=== PATIENT | female | born 1950 | race Caucasian/White ===

== ENCOUNTER 2022-02-17 08:57 | Outpatient (REF) | payer MEDICARE, SELFPAY ==
--- NOTE | ~2022-02-17 | MM_ITS ---
EXAMINATION: BONE DENSITOMETRY CLINICAL INDICATION: Asymptomatic menopausal state. COMPARISON: None (current study represents initial baseline exam). TECHNIQUE: Using a [employer] [facility] DXA System (software version: 13.1) manufactured by [employer], dual-energy x-ray absorptiometry was performed of the lumbar spine and left hip. The images are of good technical quality. Summary results are attached. FINDINGS: AP SPINE L1-L4 (excluding L3): The data of L1-L4 has been changed to exclude the L3 vertebral body, because degenerative changes at this level may cause overestimation of lumbar spine density. BMD 0.974 g/cm2, Z-score -1.1, T-score -1.6, osteopenia. LEFT FEMUR, NECK: BMD 0.769 g/cm2, Z-score -1.0, T-score -1.9, osteopenia. LEFT FEMUR, TOTAL: BMD 0.953 g/cm2, Z-score 0.2, T-score -0.4, normal. IDENTIFIED RISK FACTORS: Height loss, low calcium intake, tobacco use (current smoker). Early menopause, secondary osteoporosis. HISTORY OF FRACTURE: None listed. MEDICATIONS: Vitamin D. MM/XR DEXA axial skeleton IMPRESSION: 1. DIAGNOSIS: Osteopenia based on the lowest T-score value of -1.9 in the femoral neck applying World Health Organization criteria. 2. 10-YEAR FRACTURE RISK PREDICTION, FRAX: Major osteoporotic fracture (clinical spine, forearm, hip or shoulder) 10.4%. Hip fracture 2.8%. 3. Treatment Recommendations: NOF guidelines recommend consideration for treatment in postmenopausal women and men age 50 and older presenting with the following: -A hip or vertebral (clinical or morphometric) fracture. -T-score less than or equal to -2.5 at the femoral neck or spine after appropriate evaluation to exclude secondary causes. -Low bone mass at the hip or spine and a 10-year fracture probability by FRAX of greater than or equal to 3% for hip fracture or greater than or equal to 20% for major osteoporotic fracture based on the [place] adapted WHO algorithm. 4. Other Recommendations: All treatment decisions require clinical judgment and consideration of individual patient factors, including patient preferences, comorbidities, previous drug use, risk factors not captured in the FRAX model (e.g. frailty, falls, vitamin D deficiency, increased bone turnover, interval significant decline in bone density) and possible under or overestimation of fracture risk by FRAX. Additional medical evaluation for secondary cause of low bone mineral density may be appropriate. FUTURE SCAN RECOMMENDATION: People with diagnosed cases of osteoporosis or at high risk for fracture should have regular bone mineral density tests. For patients eligible for Medicare, routine testing is allowed once every 2 years. The testing frequency can be increased to one year for patients who have rapidly progressing disease, those who are receiving or discontinuing medical therapy to restore bone mass, or have additional risk factors.
== END 2022-02-17 08:58 | disposition home or self-care (01) ==
LOC: HO.MAMMO 08:57
PROVIDERS: PCP Internal Medicine; Visit Provider Internal Medicine
DX: Z13.820 Encounter for screening for osteoporosis (principal); Z78.0 Asymptomatic menopausal state; M85.80 Other specified disorders of bone density and structure, unspecified site
CPT/HCPCS: 77080

== ENCOUNTER 2022-02-23 09:30 | Outpatient (REF) | payer MEDICARE, SELFPAY ==
--- NOTE | ~2022-02-23 | MM_ITS ---
EXAMINATION: MM SCREENING DIGITAL BREAST TOMOSYNTHESIS, BILATERAL CLINICAL INFORMATION: Screening. Asymptomatic. The lifetime risk of breast cancer based on the Tyrer-Cuzick Model is 3%. COMPARISON: Mammography: 04/24/2018; outside exam 06/13/2015 ([facility]). TECHNIQUE: Digital breast tomosynthesis is performed in both the craniocaudal and mediolateral oblique views along with computer-aided detection (CAD). Synthesized 2D images are generated from the tomosynthesis. Additional right CC view is provided. FINDINGS: The breasts are heterogeneously dense, which may obscure small masses (ACR BI-RADS breast composition Category c). There are no significant masses, abnormal calcifications, or other abnormalities. Parenchymal pattern is similar to prior studies. No significant changes. The axilla are unremarkable. MM/MM tomosynthesis screening BI IMPRESSION: No mammographic evidence of malignancy. ASSESSMENT: BI-RADS 1: Negative RECOMMENDATION: Routine annual mammography screening. This patient's information was entered into a reminder system with a target due date for their next mammogram.
== END 2022-02-23 09:31 | disposition home or self-care (01) ==
LOC: HO.MAMMO 09:30
PROVIDERS: PCP Student in an Organized Health Care Education/Training Program; Visit Provider Internal Medicine
DX: Z12.31 Encounter for screening mammogram for malignant neoplasm of breast (principal)
CPT/HCPCS: 77063; 77067

== ENCOUNTER 2022-08-19 07:43 | Outpatient (REF) | payer MEDICARE, SELFPAY ==
[2022-08-19 08:07] LABS: MANUAL DIFF FLAG NO
[2022-08-19 08:40] LABS: Basophils Absolute Auto 0.1 X10*3/uL (0.0-0.2); Basophils Percent Auto 0.8 % (0-2); Eosinophils Absolute Auto 0.1 X10*3/uL (0.0-0.4); Eosinophils Percent Auto 1.9 % (0-4); Hemoglobin 15.6 g/dl (12.0-16.0); Imm Gran Abs Auto 0.03 X10*3/uL (0.00-0.03); Imm Gran Pct Auto 0.5 % (0.0-0.4); Lymphocytes Absolute Auto 1.8 X10*3/uL (1.2-4.9); Lymphocytes Percent Auto 28.3 % (20-40); Mean Corpuscular HGB Conc 35.5 g/dl (31.0-35.0); Mean Corpuscular Hemoglobin 33.3 pg (27.0-33.0); Mean Corpuscular Volume 93.8 fL (80.0-98.0); Mean Platelet Volume 9.5 fL (9.4-12.3); Monocytes Absolute Auto 0.5 X10*3/uL (0.1-1.2); Monocytes Percent Auto 7.2 % (2-11); Neutrophils Absolute Auto 3.8 x10*3/uL (2.0-8.3); Neutrophils Percent Auto 61.3 % (45-73); Platelet Count 332 X10*3/uL (160-400); Red Blood Count 4.69 X10*6/uL (4.20-5.50); Red Cell Distribution Width 12.9 % (11.0-16.0); White Blood Count 6.2 X10*3/uL (4.8-10.8)
[2022-08-19 09:07] LABS: Rheumatoid Factor 14.2 IU/mL (<15.0)
[2022-08-19 09:32] LABS: Alanine Aminotransferase 12 U/L (0-31); Albumin Level 4.2 g/dL (3.5-5.0); Alkaline Phosphatase 102 U/L (39-117); Anion Gap 14 (12-20); Aspartate Amino Transferase 17 U/L (5-31); Bilirubin Total 0.6 mg/dL (0.0-1.0); Blood Urea Nitrogen 15 mg/dL (9-16); Calcium 9.2 mg/dL (8.4-10.2); Carbon Dioxide 26 mmol/L (22-29); Chloride 106 mmol/L (96-108); Cholesterol 188 mg/dL; Estimated Glomerular Filt Rate > 60; Glucose Fasting 94 mg/dL (60-99); HDL Cholesterol 50 mg/dL; LDL Cholesterol Calculated 114 mg/dl; Potassium 4.7 mmol/L (3.3-5.1); Sodium 141 mmol/L (135-145); Triglycerides 121 mg/dL; Vitamin D 25-OH Total 31.8 ng/mL (>30)
[2022-08-20 07:11] LABS: Syphilis Screen Nonreactive (Nonreactive)
[2022-08-21 14:46] LABS: Streptolysin O Antibody 150 IU/mL (<200)
[2022-08-22 15:31] LABS: TS Negative Control Passed; TS Panel A 0; TS Panel B 0; TS Positive Control Passed; TSpotTB Negative (Negative)
[2022-08-23 09:47] LABS: Anti Nuclear Antibody Screen NEGATIVE (NEGATIVE)
[2022-08-24 19:37] LABS: Treponema pallidum Ab FTA ABS Nonreactive (Nonreactive)
[2022-08-25 15:46] LABS: HLA B27 Negative (Negative)
[2022-08-27 05:16] LABS: Angiotensin Converting Enzyme 28 U/L (9-67)
[2022-08-27 22:17] LABS: Lysozyme, Serum 10.4 mcg/mL (5.0-11.0)
== END 2022-08-19 07:44 | disposition home or self-care (01) ==
LOC: HO.LAB 07:43
PROVIDERS: Absent Provider Ophthalmology; PCP Internal Medicine; Visit Provider Internal Medicine
DX: D64.9 Anemia, unspecified (principal); E66.01 Morbid (severe) obesity due to excess calories; E55.9 Vitamin D deficiency, unspecified; H20.022 Recurrent acute iridocyclitis, left eye
CPT/HCPCS: 36415; 80053; 80061; 82164; 82306; 84443; 85025; 85549; 86038; 86039; 86060; 86431; 86481; 86780; 86812

== ENCOUNTER 2023-02-25 10:31 | Outpatient (REF) | payer MEDICARE, SELFPAY ==
--- NOTE | ~2023-02-25 | MM_ITS ---
EXAMINATION: MM SCREENING DIGITAL BREAST TOMOSYNTHESIS, BILATERAL CLINICAL INFORMATION: Screening. Asymptomatic. The lifetime risk of breast cancer based on the Tyrer-Cuzick Model is 3%. COMPARISON: Mammography: 02/23/2022, 04/24/2018; outside exam 06/13/2015 ([facility]) TECHNIQUE: Digital breast tomosynthesis is performed in both the craniocaudal and mediolateral oblique views along with computer-aided detection (CAD). Synthesized 2D images are generated from the tomosynthesis. FINDINGS: The breasts are heterogeneously dense, which may obscure small masses (ACR BI-RADS breast composition Category c). There are no significant masses, abnormal calcifications, or other abnormalities. Parenchymal pattern is similar to prior studies. There is no developing density or architectural abnormality. The axilla and skin contours are unremarkable. No significant changes. MM/MM tomosynthesis screening BI IMPRESSION: No mammographic evidence of malignancy. ASSESSMENT: BI-RADS 1: Negative RECOMMENDATION: Routine annual mammography screening. This patient's information was entered into a reminder system with a target due date for their next mammogram.
== END 2023-02-25 10:32 | disposition home or self-care (01) ==
LOC: HO.MAMMO 10:31
PROVIDERS: PCP Internal Medicine; Visit Provider Internal Medicine
DX: Z12.31 Encounter for screening mammogram for malignant neoplasm of breast (principal)
CPT/HCPCS: 77063; 77067

== ENCOUNTER 2023-06-07 09:38 | Outpatient (AMB) | payer MEDICARE, SELFPAY ==
[2023-06-07 09:41] VITALS: BP 126/80; PULSE 106; O2SAT 98; BMI 42.3
--- NOTE | 2023-06-07 09:41 | MHC.PC.OV ---
Vital Signs 06/07/23 09:41 Height 5 ft 1 in Weight 224 lb BMI 42.3 BP 126/80 Blood Pressure Location Lt brachial Position Sitting Pulse 106 H Pulse Source Pulse Oximeter Temp Source Skin Pulse Oximetry (%) 98 Oxygen Delivery Method Room Air Intake Visit Reasons: 4 month f/u Intake Note: Patient is here to follow up on 4 months Allergies No Known Drug Allergies Allergy (Unknown, Verified 06/07/23 09:51) U Medication List - Last Reconciled 06/07/23 by RAFAEL Day acetaminophen (Tylenol Extra Strength) 500 mg PO Q6H PRN aspirin (Adult Low Dose Aspirin) 81 mg PO DAILY calcium carbonate 600 mg PO BID 90 days cholecalciferol (vitamin D3) 50 mcg PO DAILY clonazepam 1 mg PO BEDTIME PRN 30 days docusate sodium (Colace) 100 mg PO DAILY fluoxetine 20 mg PO DAILY 90 days gabapentin 800 mg PO TID 30 days ibuprofen 200 mg PO Q6H PRN ketorolac 0.5% 1 drp ophthalmic (eye) TID melatonin 10 mg PO BEDTIME PRN nirmatrelvir-ritonavir 300 mg (150 mg x 2)-100 mg (Paxlovid) 3 ea PO PER PKG DIR 5 days omeprazole 20 mg PO DAILY prednisolone acetate 1% 1 drp ophthalmic (eye) DAILY sennosides (Natural Senna Laxative) 17.2 mg PO DAILY Tobacco use date assessed: 06/07/23 Fall risk assessment: No Falls in past year Last assessed Fall Risk: 06/07/23 HPI 4 month f/u HPI Details Patient is a 72-year-old female who presents today for preop clearance. Dr. Garvey Surgery/Date: 06/10/23 left eye cataract, 06/22/23 right eye cataract Surgeon: Dr. Edwards Location: [place], [place] Anaesthesia: Local/MAC. Patient reports history of general anesthesia in the past that she tolerated well. Patient denies history of perioperative hypothermia or blood clotting disorders. Patient is on aspirin 81 mg daily. Medical history significant for morbid obesity, chronic GERD, anxiety, constipation, depression, lumbar degenerative disc disease, insomnia, osteopenia. Patient denies shortness of breath or chest pain. FORMERLY [facility], [facility] Medical History Chronic GERD Constipation by delayed colonic transit Encounter for annual wellness exam in Medicare patient CAMERON (generalized anxiety disorder) Hypovitaminosis D Insomnia Lumbar degenerative disc disease Mild recurrent major depression Morbid obesity Postmenopausal Surgical History Abnormal colonoscopy History of blepharoplasty History of section History of cholecystectomy History of cyst of breast History of knee replacement procedure of right knee History of laryngoscopy History of left knee replacement Family History Father CAD (coronary artery disease) Mother No problems noted. Brother Healthy adult Family/Other FH: mental illness Social History Housing: House Alcohol intake: current Alcohol intake frequency: holidays/special occasions only Alcohol type: hard liquor Patient Tobacco Use Status: Former Tobacco user Quit Date: 03/11/2023 Tobacco use type: Cigarette Cigarettes Per Day: 10 e-Cigarette/Vaping Use: Currently Using Second Hand Smoke Exposure: No service: No Current occupational status: disabled Cognitive needs: No Hearing needs: No Vision needs: No Questionnaire Thrive Questionnaire Date Thrive assessed: 02/01/23 AUDIT C Alcohol Use Questionnaire (AUDIT-C) 1. How often do you have a drink containing alcohol?: Monthly or less 2. How many drinks containing alcohol do you have on a typical day when you are drinking?: 1 or 2 3. How often do you have six or more drinks on one occasion?: Never Total Score: 1 Score Reviewed/Action Taken: No CAMERON-7 AMB Questionnaire CAMERON-7 Date CAMERON - 7 assessed: 02/01/23 Source: Developed by Drs. Avelino Izquierdo, Venita Mayo, Jaspreet Spear and colleagues, with an educational stew from [employer]. Review of Systems Const Denies body aches, Denies chills, Denies fever(s) and Denies headache(s) Eyes Reports as per HPI and Denies change in vision ENT Denies dizziness, Denies otalgia, Denies headache(s), Denies nasal discharge, Denies sinus pain and Denies sore throat Card Denies chest pain, Denies edema, Denies lightheadedness and Denies dyspnea Resp Denies cough, Denies dyspnea and Denies wheezing GI Denies abdominal pain Denies dysuria Musc Denies myalgias Skin/Breast Denies rash Neuro Denies dizziness and Denies headache(s) Aller/Immun Denies wheezing Physical exam (Primary Care) Vital Signs: Last Vital Signs Pulse 106 H 06/07/23 09:41 BP 126/80 06/07/23 09:41 Pulse Ox 98 06/07/23 09:41 Oxygen Delivery Method Room Air 06/07/23 09:41 BMI result Body Mass Index 42.3 Tobacco/Smoking Status: Tobacco use Status Tobacco use date assessed 06/07/23 06/07/23 09:42 Patient Tobacco Use Status Former Tobacco user 06/07/23 09:51 Tobacco use type Cigarette 06/07/23 09:42 e-Cigarette/Vaping Use Currently Using 06/07/23 09:51 Thrive Assessment: Date of Thrive Assessment Date Thrive assessed 02/01/23 06/07/23 09:42 Const General: cooperative and no acute distress Orientation/consciousness: patient oriented x3 HENMT Head: Yes normocephalic and Yes atraumatic Face and sinus: Yes sinuses nontender Mouth: oropharynx normal and moist mucous membranes Throat: Yes posterior oropharynx normal Eyes General: appearance normal, both eyes and all related structures Pupils: Equal, round and reactive pupils present EOM: EOMs intact bilaterally Neck Neck: Yes normal visual inspection, Yes full ROM and Yes no lymphadenopathy Thyroid: Thyroid normal Resp Effort & Inspection: normal respiratory effort and able to speak in complete sentences Auscultation: clear to auscultation bilaterally, no crackles, no rales, no rhonchi and no wheezes Cardio Rate: regular rate Rhythm: regular rhythm Heart sounds: S1 normal heart sound present, S2 normal heart sound present and no murmurs GI Palpation (GI): Soft to palpation, not firm, nontender, no guarding, not rigid and no hepatosplenomegaly Auscultation: normal bowel sounds Skin General skin exam: no rashes or lesions noted Neuro General: patient oriented x3 Cranial nerves: Yes Equal, round and reactive pupils present Gait exam (Neuro): Normal gait present Extrem General: Yes full ROM and No edema Results Reviewed Results Reviewed: Laboratory Tests 06/07/23 06/07/23 06/07/23 10:46 10:46 10:46 WBC 7.2 RBC 4.11 L Hgb 12.7 Hct 38.6 MCV 93.9 MCH 30.9 MCHC 32.9 RDW 12.7 Plt Count 276 MPV 9.3 L Absolute Nucleated RBC 0.000 Nucleated RBC % (auto) 0.0 PT 10.6 L INR 0.9 Sodium 142 Potassium 4.3 Chloride 107 Carbon Dioxide 28 Anion Gap 11 L BUN 15 Creatinine 0.69 Estim Creat Clear Calc Not Reportable Estimated GFR > 60 Random Glucose 93 Calcium 9.9 D TSH 1.72 Assessment and Plan Assessment & Plan (1) Preoperative clearance: Code(s): Z01.818 - Encounter for other preprocedural examination Plan: METs > 4; RCRI Class 1 cardiovascular risk 0.4% for a low risk surgery (recent blood work 06/2023) Regarding preop clearance, the patient is at acceptable risk for proposed surgery. Reviewed with the patient that no surgery is completely free of risk and that this examination is to assist the surgeon in reviewing informed consent. Postop care including DVT prophylaxis per surgeon. Patient is cleared for surgery. Ordering Physician: Gaye Tello Date of Service: 06/07/23 Procedure(s): ECG 12 lead EKG Accession Number(s): [id number] cc: Gaye Tello~ Test Reason : preop Blood Pressure : / mmHG Vent. Rate : 085 BPM ? ? Atrial Rate : 085 BPM ?? P-R Int : 168 ms? QRS Dur : 070 ms ? ? QT Int : 370 ms ? ? ? P-R-T Axes : 050 022 049 degrees ?? QTc Int : 440 ms ? Normal sinus rhythm Normal ECG When compared with ECG of 19-MAY-2013 11:49, No significant change was found ? Referred By: Gaye Tello ? Electronically Signed By:AVELINO KRISHNAMURTYH (2) Morbid obesity: Code(s): E66.01 - Morbid (severe) obesity due to excess calories Plan: BMI 42.3 (3) Cataract: Code(s): H26.9 - Unspecified cataract Plan: Surgery/Date: 06/10/23 left eye cataract, 06/22/23 right eye cataract Surgeon: Dr. Edwards Location: [place], [place] Anaesthesia:? Local/MAC. Orders: Orders Complete Blood Count no Diff 06/07/23 Z01.818 - Encounter for other preprocedural examination Basic Metabolic Panel 06/07/23 Z.818 - Encounter for other preprocedural examination TSH reflex Free T4 06/07/23 Z818 - Encounter for other preprocedural examination Prothrombin Time INR 06/07/23 Z.818 - Encounter for other preprocedural examination ECG 12 lead EKG 06/07/23 Z.81 - Encounter for other preprocedural examination Medications: Discontinued nirmatrelvir-ritonavir 300 mg (150 mg x 2)-100 mg (Paxlovid) Discontinued Reason: Patient no longer taking 3 ea PO PER PKG DIR 5 days 30 ea 0RF Coding Level of Care Code Est Pt Level 3 (45160) Diagnoses Preoperative clearance Z01.818 Morbid obesity E66.01 Cataract H26.9
== END 2023-06-07 10:07 | disposition home or self-care (01) ==
PROVIDERS: PCP Internal Medicine; Visit Provider Nurse Practitioner Family
DX: H26.9 Unspecified cataract (principal); Z01.818 Encounter for other preprocedural examination; E66.01 Morbid (severe) obesity due to excess calories; Z68.41 Body mass index [BMI] 40.0-44.9, adult
CPT/HCPCS: 99213

== ENCOUNTER 2023-06-07 10:24 | Outpatient (REF) | payer MEDICARE, SELFPAY ==
--- NOTE | 2023-06-07 10:31 | ECG_ITS ---
Test Reason : preop Blood Pressure : / mmHG Vent. Rate : 085 BPM Atrial Rate : 085 BPM P-R Int : 168 ms QRS Dur : 070 ms QT Int : 370 ms P-R-T Axes : 050 022 049 degrees QTc Int : 440 ms Normal sinus rhythm Normal ECG When compared with ECG of 19-MAY-2013 11:49, No significant change was found Referred By: Gaye Tello Electronically Signed By:AVELINO KRISHNAMURTHY
[2023-06-07 10:57] LABS: Hematocrit 38.6 % (37.0-47.0); Hemoglobin 12.7 g/dl (12.0-16.0); Mean Corpuscular HGB Conc 32.9 g/dl (31.0-35.0); Mean Corpuscular Hemoglobin 30.9 pg (27.0-33.0); Mean Corpuscular Volume 93.9 fL (80.0-98.0); Mean Platelet Volume 9.3 fL (9.4-12.3); Platelet Count 276 X10*3/uL (160-400); Red Blood Count 4.11 X10*6/uL (4.20-5.50); Red Cell Distribution Width 12.7 % (11.0-16.0); White Blood Count 7.2 X10*3/uL (4.8-10.8)
[2023-06-07 11:03] LABS: INTERNATIONAL NORM RATIO 0.9 (0.9-1.1); Prothrombin Time 10.6 SEC (11.1-13.3)
[2023-06-07 15:15] LABS: Anion Gap 11 (12-20); Blood Urea Nitrogen 15 mg/dL (9-16); Calcium 9.9 mg/dL (8.4-10.2); Carbon Dioxide 28 mmol/L (22-29); Chloride 107 mmol/L (96-108); Estimated Glomerular Filt Rate > 60; Glucose Random 93 mg/dL (60-115); Potassium 4.3 mmol/L (3.3-5.1); Sodium 142 mmol/L (135-145)
[2023-06-07 15:18] LABS: TSH reflex Free T4 1.72 uIU/mL (0.32-4.0)
== END 2023-06-07 10:25 | disposition home or self-care (01) ==
LOC: HO.LAB 10:24
PROVIDERS: PCP Internal Medicine; Visit Provider Nurse Practitioner Family
DX: Z01.818 Encounter for other preprocedural examination (principal); K21.9 Gastro-esophageal reflux disease without esophagitis; I25.10 Atherosclerotic heart disease of native coronary artery without angina pectoris; F32.A Depression, unspecified
CPT/HCPCS: 36415; 80048; 84443; 85027; 85610; 93005

== ENCOUNTER 2023-10-05 09:40 | Outpatient (AMB) | payer MEDICARE, SELFPAY ==
--- NOTE | 2023-10-05 09:46 | MHC.PC.OV ---
Vital Signs 10/05/23 09:47 Height 5 ft 1 in Weight 224 lb BMI 42.3 BP 136/82 Blood Pressure Location Lt brachial Position Sitting Intake Visit Reasons: F/U with Dr. Garvey on meds Intake Note: Patient here for a follow up medication Academic Advising Director Required: No Accompanied by: Self / Same As Patient Allergies No Known Drug Allergies Allergy (Unknown, Verified 10/05/23 10:00) U Medication List - Last Reconciled 10/05/23 by Mariela Jones MD acetaminophen (Tylenol Extra Strength) 500 mg PO Q6H PRN aspirin (Adult Low Dose Aspirin) 81 mg PO DAILY calcium carbonate 600 mg PO BID 90 days cholecalciferol (vitamin D3) 50 mcg PO DAILY clonazepam 1 mg PO BEDTIME PRN 30 days docusate sodium (Colace) 100 mg PO DAILY fluoxetine 20 mg PO DAILY 90 days gabapentin 800 mg PO TID 30 days ibuprofen 200 mg PO Q6H PRN melatonin 10 mg PO BEDTIME PRN omeprazole 20 mg PO DAILY sennosides (Natural Senna Laxative) 17.2 mg PO DAILY Tobacco use date assessed: 06/07/23 Fall risk assessment: No Falls in past year Last assessed Fall Risk: 10/05/23 Dental Screening Dental Screen Date: 10/05/23 Did you have a dental visit in the last 12 months?: Yes Did you have a dental problem in the last 6 months where you did not have access to dental care?: No Was dental information given to patient?: Patient has dentist HPI HPI Comments History of Present Illness Details This is a 73-year-old female with mild recurrent major depression, anxiety, constipation and chronic GERD that comes today for follow-up on her conditions. Depression stable with fluoxetine. Anxiety stable with benzodiazepines and she is aware can cause addiction. Constipation well controlled with medications as needed. GERD also stable with PPIs. No chest pain or shortness of breath. FORMERLY [facility] Medical History Postmenopausal Insomnia Lumbar degenerative disc disease Mild recurrent major depression Constipation by delayed colonic transit Hypovitaminosis D Encounter for annual wellness exam in Medicare patient CAMERON (generalized anxiety disorder) Chronic GERD Morbid obesity Surgical History History of cataract surgery Abnormal colonoscopy History of knee replacement procedure of right knee History of left knee replacement History of laryngoscopy History of cyst of breast History of blepharoplasty History of cholecystectomy History of section Family History Father CAD (coronary artery disease) Mother No problems noted. Brother Healthy adult Family/Other FH: mental illness Social History Housing: House Alcohol intake: current Alcohol intake frequency: holidays/special occasions only Alcohol type: hard liquor Patient Tobacco Use Status: Former Tobacco user Quit Date: 03/11/2023 Tobacco use type: Cigarette Cigarettes Per Day: 10 e-Cigarette/Vaping Use: Currently Using Second Hand Smoke Exposure: No service: No Current occupational status: disabled Cognitive needs: No Hearing needs: No Vision needs: No Questionnaire PHQ-9 Over the last 2 weeks, how often have you been bothered by any of the following problems? 1. Little interest or pleasure in doing things: not at all 2. Feeling down, depressed, or hopeless: several days 3. Trouble falling or staying asleep, or sleeping too much: not at all 4. Feeling tired or having little energy: not at all 5. Poor appetite or overeating: not at all 6. Feeling bad about yourself - or that you are a failure or have let yourself or your family down: not at all 7. Trouble concentrating on things, such as reading the newspaper or watching television: not at all 8. Moving or speaking so slowly that other people could have noticed. Or the opposite - being so fidgety or restless that you have been moving around a lot more than usual: not at all 9. Thoughts that you would be better off or of hurting yourself in some way: not at all Total score: 1 Depression Screening Interpretation: Negative Depression Screening Done: Yes 20537 - PHQ-9 Billing: Yes Source: Developed by Drs. Domingo Izquierdo, Venita Mayo, Jaspreet Spear and colleagues, with an educational stew from [employer]. Thrive Questionnaire Date Thrive assessed: 10/05/23 I am a: Patient What is your living situation today?: I have a steady place to live Within the past 12 months, did the food you bought not last and you didn't have the money to get more?: Never true Within the past 12 months, did you worry whether your food would run out before you got money to buy more?: Never true Do you have trouble paying for medicines?: No Do you have trouble getting transportation to medical appointments?: No Do you have trouble paying your heating and electricity bill?: No Do you have trouble taking care of your child, family member or friend?: No Do you have trouble with day-to-day activities such as bathing, preparing meals, shopping, managing finances, etc.?: No Are you currently unemployed and looking for a job?: No Are you interested in more education?: No Please select the resources that you would like help with: None Currently or been in a relationship where the following occur: no concerns reported AUDIT C Alcohol Use Questionnaire (AUDIT-C) 1. How often do you have a drink containing alcohol?: Monthly or less 2. How many drinks containing alcohol do you have on a typical day when you are drinking?: 1 or 2 3. How often do you have six or more drinks on one occasion?: Never Total Score: 1 Score Reviewed/Action Taken: No CAMERON-7 AMB Questionnaire CAMERON-7 Date CAMERON - 7 assessed: 10/05/23 Feeling nervous, anxious, or on edge: 1 = Several days Not being able to stop or control worryin = Not at all Worrying too much about different things: 0 = Not at all Trouble relaxin = Not at all Being so restless that it is hard to sit still: 0 = Not at all Becoming easily annoyed or irritable: 0 = Not at all Feeling afraid as if something awful might happen: 0 = Not at all Total CAMERON-7 score (0-4 normal; 5-9 mild; 10-14 moderate; 15-21 severe): 1 Source: Developed by Drs. Domingo Izquierdo, Venita Mayo, Jaspreet Spear and colleagues, with an educational stew from [employer]. CAMERON-7 Assessment Billing CAMERON-7 Assessment Tool: CAMERON-7 Assessment 88070 Review of Systems Const All systems reviewed & are unremarkable except as noted in HPI and below Eyes Reports no additional complaints, Denies change in vision and Denies other visual disturbances Card Denies chest pain at rest, Denies chest pain with activity, Denies edema, Denies irregular heart rhythm, Denies claudication, Denies dyspnea, Denies dyspnea on exertion, Denies orthopnea, Denies paroxysmal nocturnal dyspnea and Denies slow heart rate Resp Denies cough, Denies dyspnea and Denies dyspnea on exertion GI Denies abdominal pain, Denies change in bowel habits, Denies excessive flatus, Denies nausea and Denies vomiting Denies urinary incontinence, Denies urinary hesitancy and Denies urinary urgency Musc Denies abnormal gait, Denies atrophy, Denies deformity and Denies limited range of motion Skin/Breast Denies bleeding lesions, Denies changing lesions and Denies rash Neuro Denies abnormal gait, Denies behavioral changes and Denies lack of coordination Psych Denies behavioral changes Physical exam (Primary Care) Vital Signs: Last Vital Signs BP 136/82 10/05/23 09:47 BMI result Body Mass Index 42.3 Tobacco/Smoking Status: Tobacco use Status Tobacco use date assessed 06/07/23 10/05/23 09:47 Patient Tobacco Use Status Former Tobacco user 10/05/23 09:47 Tobacco use type Cigarette 10/05/23 09:47 e-Cigarette/Vaping Use Currently Using 10/05/23 09:47 PHQ-9: PHQ-9 Score PHQ-9: Total score 1 10/05/23 10:05 Depression Screening Interpretation: Negative Thrive Assessment: Date of Thrive Assessment Date Thrive assessed 10/05/23 10/05/23 09:55 Currently or been in a relationship where the following occur: no concerns reported [facility] Head: Yes normal to inspection, Yes normocephalic and Yes atraumatic Ears: external ears normal General nose exam: Normal external nose present and No nasal discharge present Face and sinus: Yes sinuses nontender Mouth: lip normal Eyes General: appearance normal, both eyes and all related structures Eyelids: Yes eyelids normal Conjunctivae: conjunctivae normal Neck Neck: Yes normal visual inspection and Yes supple Resp Effort & Inspection: normal respiratory effort Auscultation: clear to auscultation bilaterally Cardio Jugular venous distension: no JVD Rate: regular rate Rhythm: regular rhythm Heart sounds: S1 normal heart sound present and S2 normal heart sound present Extrem General: Yes full ROM Assessment and Plan Assessment & Plan (1) Mild recurrent major depression: Code(s): F33.0 - Major depressive disorder, recurrent, mild Plan: Continue SSRIs. (2) Constipation by delayed colonic transit: Code(s): K59.01 - Slow transit constipation Plan: Continue senna as needed. (3) CAMERON (generalized anxiety disorder): Code(s): F41.1 - Generalized anxiety disorder Plan: Continue benzodiazepines as needed. (4) Chronic GERD: Code(s): K21.9 - Gastro-esophageal reflux disease without esophagitis Plan: Continue PPIs as needed. (5) Morbid obesity: Code(s): E66.01 - Morbid (severe) obesity due to excess calories Plan: Start diet and exercise. BMI goal is less than 30. Medications: Refilled gabapentin 800 mg PO TID 30 days 90 tabs 3RF Coding Level of Care Code Est Pt Level 4 (96955) Diagnoses Mild recurrent major depression F33.0 Constipation by delayed colonic transit K59.01 CAMERON (generalized anxiety disorder) F41.1 Chronic GERD K21.9 Morbid obesity E66.01 Additional Codes CAMERON-7 Assessment Billing - CAMERON-7 Assessment Tool: CAMERON-7 Assessment 32245 ([id number]) Time Spent (min) 23
[2023-10-05 09:47] VITALS: BP 136/82; BMI 42.3
== END 2023-10-05 10:08 | disposition home or self-care (01) ==
PROVIDERS: PCP Internal Medicine; Visit Provider Internal Medicine
DX: F33.0 Major depressive disorder, recurrent, mild (principal); E66.01 Morbid (severe) obesity due to excess calories; Z68.41 Body mass index [BMI] 40.0-44.9, adult; K59.01 Slow transit constipation; F41.1 Generalized anxiety disorder; K21.9 Gastro-esophageal reflux disease without esophagitis
CPT/HCPCS: 99214

== ENCOUNTER 2023-11-16 17:08 | Emergency (ER) | payer MEDICARE, SELFPAY ==
--- NOTE | ~2023-11-16 | CT_ITS ---
EXAMINATION: CT head/brain wo IV con CLINICAL INFORMATION: Reason for Exam No headache, RO mass/bleed COMPARISON: None. TECHNIQUE: Contiguous axial imaging was performed from the skull base to vertex without intravenous contrast. Sagittal and coronal reformatted images were obtained. This CT examination was performed using dose optimization techniques as appropriate, variously including the following: * Automated exposure control * Adjustment of mA and/or kV according to patient size (this includes techniques or standardized protocols for targeted exams where dose is matched to indication/reason for exam; i.e. extremities or head) Use of iterative reconstruction technique DLP: 661 mGy-cm FINDINGS: No acute osseous or soft tissue abnormality. The mastoid air cells and visualized portions of the paranasal sinuses are well aerated. There is no evidence of acute intracranial hemorrhage or territorial infarction. No abnormal mass effect or midline shift is seen. [place] to white matter differentiation is well preserved. No extra-axial fluid collections are identified. No hydrocephalus. Proportional prominence of the ventricles and sulcal spaces is consistent with mild volume loss. Patchy periventricular and deep white matter hypoattenuation is consistent with mild small vessel ischemic changes. CT/CT head/brain wo IV con IMPRESSION: No acute intracranial abnormality including hemorrhage, mass effect, hydrocephalus, or acute territorial edematous infarction.
[2023-11-16 17:17] VITALS: BP 194/86; PULSE 109; RESP 18; TEMP 36.9; O2SAT 97; BMI 42.5
--- NOTE | 2023-11-16 17:38 | ED_ITS ---
HPI - Headache General Chief Complaint: Headache Stated Complaint: pain in the back of head Time Seen by Provider: 11/16/23 23:00 History of Present Illness HPI Narrative: The patient is a 73-year-old woman who presents to the emergency room for evaluation of symptoms that started 5 days ago on TuesdayNovember 11. She says that at some point in the late morning she started having pains in the left side of her head. She says that she gets sharp stabbing or jabbing pains on the left side of her head ever since Tuesday. She describes having a generalized left- sided headache associated with frequent jabbing exacerbations. She says that the jabbing sensations mostly occur around the left ear. She went to an urgent care 3 days ago on November 13. She was told that her symptoms might indicate imminent shingles but since though shingles lesions or apparent no therapy was begun. The patient was told that if her symptoms continue she would need to go to the emergency room and have a CT scan. She says that this morning she was feeling somewhat better for awhile but did around 13:00 this afternoon the jabbing pains began again and she called her primary care doctor and ultimately came to the emergency room. She has not had any fevers, sweats, chills. No difficulty speaking. No weakness in her extremities. No facial asymmetry. No change in mental status. No neck stiffness. At the moment she is indicating that the pain is essentially just behind and under the left ear. Related Data Home Medications Medication Instructions Recorded Confirmed acetaminophen 500 mg tablet 500 mg PO Q6H PRN 01/28/22 10/05/23 (Tylenol Extra Strength) aspirin 81 mg tablet,delayed 81 mg PO DAILY 01/28/22 10/05/23 release (Adult Low Dose Aspirin) cholecalciferol (vitamin D3) 25 50 mcg PO DAILY 01/28/22 10/05/23 mcg (1,000 unit) capsule docusate sodium 100 mg capsule 100 mg PO DAILY 01/28/22 10/05/23 (Colace) ibuprofen 200 mg tablet 200 mg PO Q6H PRN 01/28/22 10/05/23 melatonin 10 mg disintegrating 10 mg PO BEDTIME PRN 01/28/22 10/05/23 tablet sennosides 8.6 mg tablet (Natural 17.2 mg PO DAILY 01/28/22 10/05/23 Senna Laxative) Previous Rx's Medication Instructions Recorded calcium carbonate 600 mg calcium 600 mg PO BID 90 days #180 tabs 06/28/22 (1,500 mg) tablet omeprazole 20 mg capsule,delayed 20 mg PO DAILY #90 caps 01/28/23 release gabapentin 800 mg tablet 800 mg PO TID 30 days #90 tabs 10/05/23 fluoxetine 20 mg capsule 20 mg PO DAILY 90 days #90 caps 11/14/23 clonazepam 1 mg tablet 1 mg PO BEDTIME PRN anxiety 30 11/16/23 days #30 tabs Allergies Allergy/AdvReac Type Severity Reaction Status Date / Time No Known Drug Allergies Allergy Unknown U Verified 11/16/23 17:17 Review of Systems 2 Review of Systems: Yes all other systems are reviewed and are negative [facility] Past Medical History Medical History Postmenopausal Insomnia Lumbar degenerative disc disease Mild recurrent major depression Constipation by delayed colonic transit Hypovitaminosis D Encounter for annual wellness exam in Medicare patient CAMERON (generalized anxiety disorder) Chronic GERD Morbid obesity Surgical History History of cataract surgery Abnormal colonoscopy History of knee replacement procedure of right knee History of left knee replacement History of laryngoscopy History of cyst of breast History of blepharoplasty History of cholecystectomy History of section Family History Family History Father CAD (coronary artery disease) Mother No problems noted. Brother Healthy adult Family/Other FH: mental illness Social History Social History Housing: House Alcohol intake: current Alcohol intake frequency: holidays/special occasions only Alcohol type: hard liquor Patient Tobacco Use Status: Former Tobacco user Quit Date: 03/11/2023 Tobacco use type: Cigarette Cigarettes Per Day: 10 Smoked in Last 30 Days: No e-Cigarette/Vaping Use: Currently Using Second Hand Smoke Exposure: No Use of substances other than those prescribed or required for medical reasons: No Advance Directives: Yes Advance Directives on File: Yes Advance Directives Date on File: 01/29/22 service: No Current occupational status: disabled Cognitive needs: No Hearing needs: No Vision needs: No Physical Exam 2 Vital Signs: Vital Signs: Last Vital Signs Temp 98.3 F 11/17/23 01:24 Pulse 83 11/17/23 01:24 Resp 18 11/17/23 01:24 BP 143/70 H 11/17/23 01:24 Pulse Ox 97 11/17/23 01:24 O2 Del Method Room Air 11/17/23 01:24 BMI result Body Mass Index 42.5 Const: Other: The patient is awake, alert, pleasant, cooperative. Mental status is normal. She does not seem toxic or in distress. HEENT: Other: Face is symmetrical. Mucous membranes are moist. Tympanic membranes are normal bilaterally. The patient has some vague area of tenderness in the region of the left mastoid and below the left ear. No erythema. No swelling. No marked tenderness. Eyes: Other: Pupils are round, equal, and reactive to light. Extraocular movements are normal. Conjunctivae are clear. No Louis syndrome. Funduscopic exam is unremarkable. Neck: Other: No appreciable cervical adenopathy. Neck is entirely supple. Resp: Effort & Inspection: normal respiratory effort Auscultation: clear to auscultation bilaterally Cardio: Rate: regular rate Rhythm: regular rhythm Heart sounds: S1 normal heart sound present and S2 normal heart sound present Neuro: Other: The patient is awake, alert, oriented, appropriate. Mental status is normal. Cranial nerves 2-12 are intact. She has normal strength and sensation in her extremities. Finger-nose is normal. She is neurologically intact. No Louis syndrome Extrem: Other: No peripheral edema Course Course Course Narrative: Patient complains of headache gradual onset over past several days on left side of head, no weakness confusion no thunderclap, no fever no stiff neck no trauma Head CT ordered This is rapid medical exam done in triage pending full evaluation and dispo by ER provider Medications Administered Discontinued Medications Generic Name Dose Route Start Last Admin Trade Name Freq PRN Reason Stop Dose Admin Ketorolac Tromethamine 30 mg 11/16/23 23:33 11/16/23 23:51 Ketorolac Tromethamine 30 Mg/Ml Vial IM 11/16/23 23:34 30 mg ONCE ONE Administration Lidocaine HCl 2 ml 11/16/23 23:25 11/16/23 23:28 Lidocaine Hcl 1 % 20 Ml Vial INFILTRATI 11/16/23 23:26 2 ml ONCE ONE Administration Medical Decision Making Medical Decision Making [facility] Narrative: The patient presents with several days of a new head pain syndrome. She describes frequent shooting type pains on the left side of her head. The pains are exclusively on the left side. There is no associated fever, sweats, chills. No associated neck stiffness. Her description of the symptoms does not suggest a thunderclap headache. My overall impression based on her description of the symptoms is that she is having some kind of neuropathic type pain, possibly something like trigeminal neuralgia. The patient had had a head CT ordered at triage. This is negative. I explained to the patient that I felt that her description of her headache syndrome did not seem suggestive of an acute vascular problem or other acutely dangerous problem. I think this is much more likely a neuropathic problem. CBC, basic metabolic panel, LFTs, ESR, and C-reactive protein are all unremarkable. I tried a trigger point injection, injecting 2 mL of 1% lidocaine with a 30 gauge needle in the region of pain behind the left ear. This was done with aseptic technique. The patient was also given a dose of ketorolac. Clinically the patient seemed to look a little bit better although she did not report a great deal of relief. Her blood pressure improved. I explained to the patient and to her daughter that I felt an acute vascular problem or other acutely dangerous problem was very unlikely based on her description of her symptoms. I explained that management of the symptoms may be difficult as neuropathic pain symptoms can be difficult to manage. She is already on gabapentin 800 mg b.i.d.. She will be discharged to follow up with her regular doctor. Lab Data 11/16/23 23:33 11/16/23 23:33 Labs: Lab Results 11/16/23 Range/Units 23:33 WBC 9.1 (4.8-10.8) X10*3/uL RBC 4.45 (4.20-5.50) X10*6/uL Hgb 13.4 (12.0-16.0) g/dl Hct 41.3 (37.0-47.0) % MCV 92.8 (80.0-98.0) fL MCH 30.1 (27.0-33.0) pg MCHC 32.4 (31.0-35.0) g/dl RDW 12.1 (11.0-16.0) % Plt Count 277 (160-400) X10*3/uL MPV 9.4 (9.4-12.3) fL Immature Gran % (Auto) 0.2 (0.0-0.4) % Neut % (Auto) 61.9 (45-73) % Lymph % (Auto) 26.7 (20-40) % [place] % (Auto) 9.2 (2-11) % Eos % (Auto) 1.2 (0-4) % Baso % (Auto) 0.8 (0-2) % Lymph # (Auto) 2.4 (1.2-4.9) X10*3/uL [place] # (Auto) 0.8 (0.1-1.2) X10*3/uL Eos # (Auto) 0.1 (0.0-0.4) X10*3/uL Baso # (Auto) 0.1 (0.0-0.2) X10*3/uL Abs Immat Gran (auto) 0.02 (0.00-0.03) X10*3/uL Absolute Neuts (auto) 5.7 (2.0-8.3) x10*3/uL Absolute Nucleated RBC 0.000 (0.0-0.012) X10*3/uL Nucleated RBC % (auto) 0.0 (0.0-0.2) /100WBC ESR 16 (0-20) MM/HR Sodium 143 (135-145) mmol/L Potassium 4.1 (3.3-5.1) mmol/L Chloride 104 (96-108) mmol/L Carbon Dioxide 25 (22-29) mmol/L Anion Gap 18 (12-20) BUN 13 (9-16) mg/dL Creatinine 0.73 (0.5-1.4) mg/dL Estim Creat Clear Calc 77.5 Estimated GFR > 60 Random Glucose 97 (60-115) mg/dL Calcium 10.1 (8.4-10.2) mg/dL Total Bilirubin 0.5 (0.0-1.0) mg/dL Direct Bilirubin 0.2 (0.0-0.5) mg/dL AST 18 (5-31) U/L ALT 12 (0-31) U/L Alkaline Phosphatase 103 (39-117) U/L C-Reactive Protein 0.57 H (< or = 0.50) mg/dL Total Protein 7.7 (6.5-8.0) g/dL Albumin 4.4 (3.5-5.0) g/dL Discharge Plan Discharge Clinical Impression: Head pain cephalgia Patient Disposition: Home, Self-Care Instructions: Trigeminal Neuralgia (ED) Additional Instructions: I think your description of the symptoms you have been having imply some kind of neuropathic kind of pain. I suspect you have something similar to trigeminal neuralgia. In the short run you may use ibuprofen and acetaminophen as needed for pain. You may consider going up on your dose of gabapentin. Please plan on contacting your regular doctor's office in the morning to make a follow-up appointment to discuss these symptoms further. If at any point you are significantly worse please return to the emergency room. Prescriptions: No Action omeprazole 20 mg capsule,delayed release(DR/EC) 20 mg PO DAILY Qty: 90 3RF fluoxetine 20 mg capsule 20 mg PO DAILY 90 Days Qty: 90 3RF clonazepam 1 mg tablet 1 mg PO BEDTIME PRN (Reason: anxiety) 30 Days Qty: 30 0RF gabapentin 800 mg tablet 800 mg PO TID 30 Days Qty: 90 3RF aspirin [Adult Low Dose Aspirin] 81 mg tablet,delayed release (DR/EC) 81 mg PO DAILY docusate sodium [Colace] 100 mg capsule 100 mg PO DAILY acetaminophen [Tylenol Extra Strength] 500 mg tablet 500 mg PO Q6H PRN ibuprofen 200 mg tablet 200 mg PO Q6H PRN cholecalciferol (vitamin D3) 25 mcg (1,000 unit) capsule 50 mcg PO DAILY sennosides [Natural Senna Laxative] 8.6 mg tablet 17.2 mg PO DAILY melatonin 10 mg tablet,disintegrating 10 mg PO BEDTIME PRN calcium carbonate 600 mg calcium (1,500 mg) tablet 600 mg PO BID 90 Days Qty: 180 1RF Interventions: ED Discharge Assessment Last Done: 11/17/23 01:26 Discharge Date/Time: 11/17/23 01:27
[2023-11-16 20:45] VITALS: BP 185/111; PULSE 92; RESP 18; O2SAT 97
--- NOTE | 2023-11-16 20:50 | PC.NURSE ---
reassessed from triage for vs. pa bill notified bp 185/111. talking well. continues w h/a.
[2023-11-16] MEDS: Lidocaine HCl 1 % 20 ML VIAL INFILTRATI (23:28)
[2023-11-16 23:34] VITALS: BP 154/80; PULSE 74; RESP 16; TEMP 36.9; O2SAT 97
[2023-11-16 23:42] LABS: Basophils Absolute Auto 0.1 X10*3/uL (0.0-0.2); Basophils Percent Auto 0.8 % (0-2); Eosinophils Absolute Auto 0.1 X10*3/uL (0.0-0.4); Eosinophils Percent Auto 1.2 % (0-4); Hematocrit 41.3 % (37.0-47.0); Hemoglobin 13.4 g/dl (12.0-16.0); Imm Gran Abs Auto 0.02 X10*3/uL (0.00-0.03); Imm Gran Pct Auto 0.2 % (0.0-0.4); Lymphocytes Absolute Auto 2.4 X10*3/uL (1.2-4.9); Lymphocytes Percent Auto 26.7 % (20-40); MANUAL DIFF FLAG NO; Mean Corpuscular HGB Conc 32.4 g/dl (31.0-35.0); Mean Corpuscular Hemoglobin 30.1 pg (27.0-33.0); Mean Corpuscular Volume 92.8 fL (80.0-98.0); Mean Platelet Volume 9.4 fL (9.4-12.3); Monocytes Absolute Auto 0.8 X10*3/uL (0.1-1.2); Monocytes Percent Auto 9.2 % (2-11); Neutrophils Absolute Auto 5.7 x10*3/uL (2.0-8.3); Neutrophils Percent Auto 61.9 % (45-73); Platelet Count 277 X10*3/uL (160-400); Red Blood Count 4.45 X10*6/uL (4.20-5.50); Red Cell Distribution Width 12.1 % (11.0-16.0); White Blood Count 9.1 X10*3/uL (4.8-10.8)
[2023-11-16] MEDS: Ketorolac Tromethamine 30 MG/ML VIAL IM (23:51)
[2023-11-16 23:58] LABS: Alanine Aminotransferase 12 U/L (0-31); Albumin Level 4.4 g/dL (3.5-5.0); Alkaline Phosphatase 103 U/L (39-117); Anion Gap 18 (12-20); Aspartate Amino Transferase 18 U/L (5-31); Bilirubin Direct 0.2 mg/dL (0.0-0.5); Bilirubin Total 0.5 mg/dL (0.0-1.0); Blood Urea Nitrogen 13 mg/dL (9-16); C Reactive Protein 0.57 mg/dL (< or = 0.50); Calcium 10.1 mg/dL (8.4-10.2); Carbon Dioxide 25 mmol/L (22-29); Chloride 104 mmol/L (96-108); Creatinine Clr Calc Pharmacy 77.5; Estimated Glomerular Filt Rate > 60; Glucose Random 97 mg/dL (60-115); Potassium 4.1 mmol/L (3.3-5.1); Sodium 143 mmol/L (135-145); Total Protein 7.7 g/dL (6.5-8.0)
[2023-11-17 00:20] LABS: Erythrocyte Sedimentation Rate 16 MM/HR (0-20)
[2023-11-17 01:24] VITALS: BP 143/70; PULSE 83; RESP 18; TEMP 36.8; O2SAT 97
== END 2023-11-17 01:27 | disposition home or self-care (01) ==
PROVIDERS: Emergency Provider Emergency Medicine; PCP Internal Medicine
DX: R51.9 Headache, unspecified (principal)
CPT/HCPCS: 36415; 70450; 80048; 80076; 85025; 85652; 86140; 96372; 99284; J1885

== ENCOUNTER 2023-12-06 16:58 | Outpatient (AMB) | payer MEDICARE, SELFPAY ==
[2023-12-06 17:01] VITALS: BP 160/100; BMI 42.3
--- NOTE | 2023-12-06 17:01 | A.OFFPC_ITS ---
Vital Signs 12/06/23 17:01 12/06/23 18:04 Height 5 ft 1 in Weight 224 lb BMI 42.3 BP 160/100 H 160/90 H Blood Pressure Location Lt brachial Lt brachial Position Sitting Sitting Intake Visit Reasons: [facility] [place] ED 11/16 head pain discharged 11/17 Intake Note: Patient here for [facility] ED follow up head pain 11/16 Chain Maker Hand Required: No Accompanied by: Self / Same As Patient Allergies No Known Drug Allergies Allergy (Unknown, Verified 12/06/23 17:21) U Medication List - Last Reconciled 12/06/23 by Mariela Jones MD acetaminophen (Tylenol Extra Strength) 500 mg PO Q6H PRN aspirin (Adult Low Dose Aspirin) 81 mg PO DAILY calcium carbonate 600 mg PO BID 90 days cholecalciferol (vitamin D3) 50 mcg PO DAILY clonazepam 1 mg PO BEDTIME PRN 30 days docusate sodium (Colace) 100 mg PO DAILY fluoxetine 20 mg PO DAILY 90 days gabapentin 800 mg PO TID 30 days ibuprofen 200 mg PO Q6H PRN melatonin 10 mg PO BEDTIME PRN omeprazole 20 mg PO DAILY sennosides (Natural Senna Laxative) 17.2 mg PO DAILY Tobacco use date assessed: 12/06/23 Fall risk assessment: No Falls in past year Last assessed Fall Risk: 12/06/23 Dental Screening Dental Screen Date: 12/06/23 Did you have a dental visit in the last 12 months?: Yes Did you have a dental problem in the last 6 months where you did not have access to dental care?: No Was dental information given to patient?: Patient has dentist HPI HPI Comments History of Present Illness Details This is a 73-year-old female with mild recurrent major depression, morbid obesity, GERD and constipation that comes today as a hospital discharge follow-up with discharge date 11/17/2023 due to a headache that started November 10 and resolve November 20. She said she increase her gabapentin to 3 times a day and she started taking more NSAIDs. Head CT was done and was negative. No neurological deficit. She said that yesterday she turned the head to the right and started having eye rolling movements and loss of balance. Does not recall tinnitus. Romberg test negative today. I gave her meclizine in case it happens again. Depression has improved with SSRIs. She is morbidly obese with a BMI of 42.3 and was advised to diet and exercise as tolerated to reach BMI goal less than 30. Declines weight loss surgery. GERD stable with medications. Constipation also stable with medications. No chest pain or shortness of breath. Walks with no assistive device. Has elevated blood pressure today and had elevated blood pressure at ER. Blood pressure will be recheck in 3 weeks by nurse navigator. [facility] Medical History (Updated 12/06/23 @ 18:06 by Mariela Jones MD) Postmenopausal Insomnia Lumbar degenerative disc disease Mild recurrent major depression Constipation by delayed colonic transit Hypovitaminosis D Encounter for annual wellness exam in Medicare patient CAMERON (generalized anxiety disorder) Chronic GERD Morbid obesity Surgical History History of cataract surgery Abnormal colonoscopy History of knee replacement procedure of right knee History of left knee replacement History of laryngoscopy History of cyst of breast History of blepharoplasty History of cholecystectomy History of section Family History Father CAD (coronary artery disease) Mother No problems noted. Brother Healthy adult Family/Other FH: mental illness Social History Housing: House Alcohol intake: current Alcohol intake frequency: holidays/special occasions only Alcohol type: hard liquor Patient Tobacco Use Status: Former Tobacco user Quit Date: 03/11/2023 Tobacco use type: Cigarette Cigarettes Per Day: 10 e-Cigarette/Vaping Use: Currently Using Second Hand Smoke Exposure: No Advance Directives Date on File: 01/29/22 service: No Current occupational status: disabled Cognitive needs: No Hearing needs: No Vision needs: No Questionnaire PHQ-9 Over the last 2 weeks, how often have you been bothered by any of the following problems? 1. Little interest or pleasure in doing things: several days 2. Feeling down, depressed, or hopeless: several days 3. Trouble falling or staying asleep, or sleeping too much: not at all 4. Feeling tired or having little energy: several days 5. Poor appetite or overeating: several days 6. Feeling bad about yourself - or that you are a failure or have let yourself or your family down: not at all 7. Trouble concentrating on things, such as reading the newspaper or watching television: not at all 8. Moving or speaking so slowly that other people could have noticed. Or the opposite - being so fidgety or restless that you have been moving around a lot more than usual: not at all 9. Thoughts that you would be better off or of hurting yourself in some way: not at all Total score: 4 Depression Screening Interpretation: Positive Depression Screening Follow-up: Existing condition and In treatment Depression Screening Done: Yes 73734 - PHQ-9 Billing: Yes Source: Developed by Drs. Domingo Izquierdo, Venita Mayo, aJspreet Spear and colleagues, with an educational stew from [employer]. Thrive Questionnaire Date Thrive assessed: 10/05/23 CAMERON-7 AMB Questionnaire CAMERON-7 Date CAMERON - 7 assessed: 12/06/23 Feeling nervous, anxious, or on edge: 1 = Several days Not being able to stop or control worryin = Not at all Worrying too much about different things: 0 = Not at all Trouble relaxin = Not at all Being so restless that it is hard to sit still: 0 = Not at all Becoming easily annoyed or irritable: 0 = Not at all Feeling afraid as if something awful might happen: 0 = Not at all Total CAMERON-7 score (0-4 normal; 5-9 mild; 10-14 moderate; 15-21 severe): 1 Source: Developed by Drs. Domingo Izquierdo, Venita Mayo, Jaspreet Spear and colleagues, with an educational stew from [employer]. CAMERON-7 Assessment Billing CAMERON-7 Assessment Tool: CAMERON-7 Assessment 38314 Review of Systems Const All systems reviewed & are unremarkable except as noted in HPI and below Eyes Reports no additional complaints, Denies change in vision and Denies other visual disturbances Card Denies chest pain at rest, Denies chest pain with activity, Denies edema, Denies irregular heart rhythm, Denies claudication, Denies dyspnea, Denies dyspnea on exertion, Denies orthopnea, Denies paroxysmal nocturnal dyspnea and Denies slow heart rate Resp Denies cough, Denies dyspnea and Denies dyspnea on exertion GI Denies abdominal pain, Denies change in bowel habits, Denies excessive flatus, Denies nausea and Denies vomiting Denies urinary incontinence, Denies urinary hesitancy and Denies urinary urgency Musc Denies abnormal gait, Denies atrophy, Denies deformity and Denies limited range of motion Skin/Breast Denies bleeding lesions, Denies changing lesions and Denies rash Neuro Denies abnormal gait, Denies behavioral changes and Denies lack of coordination Psych Denies behavioral changes Physical exam (Primary Care) Vital Signs: Last Vital Signs BP 160/100 H 12/06/23 17:01 BMI result Body Mass Index 42.3 Tobacco/Smoking Status: Tobacco use Status Tobacco use date assessed 12/06/23 12/06/23 17:12 Patient Tobacco Use Status Former Tobacco user 12/06/23 17:12 Tobacco use type Cigarette 12/06/23 17:12 e-Cigarette/Vaping Use Currently Using 12/06/23 17:12 PHQ-9: PHQ-9 Score PHQ-9: Total score 4 12/06/23 17:29 Depression Screening Interpretation: Positive Depression Screening Follow-up: Existing condition and In treatment Thrive Assessment: Date of Thrive Assessment Date Thrive assessed 10/05/23 12/06/23 17:12 Eyes General: appearance normal, both eyes and all related structures Eyelids: Yes eyelids normal Conjunctivae: conjunctivae normal Neck Neck: Yes normal visual inspection and Yes supple Resp Effort & Inspection: normal respiratory effort Auscultation: clear to auscultation bilaterally Cardio Jugular venous distension: no JVD Rate: regular rate Rhythm: regular rhythm Heart sounds: S1 normal heart sound present and S2 normal heart sound present Extrem General: Yes full ROM Assessment and Plan Assessment & Plan (1) Mild recurrent major depression: Code(s): F33.0 - Major depressive disorder, recurrent, mild Plan: Continue SSRIs. (2) Morbid obesity: Code(s): E66.01 - Morbid (severe) obesity due to excess calories Plan: Start diet and exercise. BMI goal is less than 30. (3) Constipation by delayed colonic transit: Code(s): K59.01 - Slow transit constipation Plan: Continue Colace. (4) Chronic GERD: Code(s): K21.9 - Gastro-esophageal reflux disease without esophagitis Plan: Continue PPIs as needed. (5) Elevated blood pressure reading without diagnosis of hypertension: Code(s): R03.0 - Elevated blood-pressure reading, without diagnosis of hypertension Plan: Recheck blood pressure in 3 weeks by nurse navigator. Medications: New meclizine 25 mg PO DAILY 3 days PRN 3 tabs 0RF motion sickness Coding Level of Care Code Est Pt Level 4 (09374) Diagnoses Mild recurrent major depression F33.0 Morbid obesity E66.01 Constipation by delayed colonic transit K59.01 Chronic GERD K21.9 Elevated blood pressure reading without diagnosis of hypertension R03.0 Additional Codes CAMERON-7 Assessment Billing - CAMERON-7 Assessment Tool: CAMERON-7 Assessment 65506 ([id number]) Time Spent (min) 24
[2023-12-06 18:04] VITALS: BP 160/90
== END 2023-12-06 17:42 | disposition home or self-care (01) ==
PROVIDERS: PCP Internal Medicine; Visit Provider Internal Medicine
DX: K21.9 Gastro-esophageal reflux disease without esophagitis (principal); F33.0 Major depressive disorder, recurrent, mild; E66.01 Morbid (severe) obesity due to excess calories; Z68.41 Body mass index [BMI] 40.0-44.9, adult; K59.01 Slow transit constipation; R03.0 Elevated blood-pressure reading, without diagnosis of hypertension
CPT/HCPCS: 99214

== ENCOUNTER 2024-04-09 08:53 | Outpatient (AMB) | payer MEDICARE, SELFPAY ==
[2024-04-09 08:55] VITALS: BP 110/72; PULSE 104; O2SAT 95; BMI 43.5
--- NOTE | 2024-04-09 08:55 | A.OFFPC_ITS ---
Vital Signs 04/09/24 08:55 Height 5 ft 1 in Weight 230 lb 0.5 oz BMI 43.5 BP 110/72 Blood Pressure Location Lt brachial Position Sitting Pulse 104 H Pulse Source Pulse Oximeter Pulse Oximetry (%) 95 Oxygen Delivery Method Room Air Intake Visit Reasons: ANNUAL Intake Note: Patient is here today for a physical. 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 Accompanied by: Self / Same As Patient Allergies No Known Drug Allergies Allergy (Unknown, Verified 04/09/24 09:15) U Medication List - Last Reconciled 04/09/24 by Mariela Jones MD acetaminophen (Tylenol Extra Strength) 500 mg PO Q6H PRN aspirin (Adult Low Dose Aspirin) 81 mg PO DAILY calcium carbonate 600 mg PO BID 90 days cholecalciferol (vitamin D3) 50 mcg PO DAILY clonazepam 1 mg PO BEDTIME PRN 30 days docusate sodium (Colace) 100 mg PO DAILY fluoxetine 20 mg PO DAILY 90 days gabapentin 800 mg PO TID 30 days ibuprofen 200 mg PO Q6H PRN meclizine 25 mg PO DAILY PRN 3 days melatonin 10 mg PO BEDTIME PRN omeprazole 20 mg PO DAILY sennosides (Natural Senna Laxative) 17.2 mg PO DAILY Tobacco use date assessed: 12/06/23 Fall risk assessment: No Falls in past year Last assessed Fall Risk: 04/09/24 Dental Screening Dental Screen Date: 12/06/23 Did you have a dental visit in the last 12 months?: No Did you have a dental problem in the last 6 months where you did not have access to dental care?: No Was dental information given to patient?: Patient has dentist HPI HPI Comments History of Present Illness Details This is a 73-year-old female with mild recurrent major depression and morbid obesity that comes for her physical exam. Depression stable with SSRIs. She is morbidly obese with a BMI of 43.5 and I will start her on Wegovy. Side effects were discussed. Last mammogram was 2022 and was normal. Last DEXA scan was 2021 and will be ordered. Last colonoscopy was 2018 and had to be repeated. We will be referred to Dr. Tripp for this matter. No acute complaints. She has been a smoker for many years and stopped a year ago when changed to vaping. She declines lung cancer screening. [facility] Medical History (Updated 04/09/24 @ 12:02 by Mariela Jones MD) Postmenopausal Insomnia Lumbar degenerative disc disease Mild recurrent major depression Constipation by delayed colonic transit Hypovitaminosis D Encounter for annual wellness exam in Medicare patient CAMERON (generalized anxiety disorder) Chronic GERD Morbid obesity Surgical History History of cataract surgery Abnormal colonoscopy History of knee replacement procedure of right knee History of left knee replacement History of laryngoscopy History of cyst of breast History of blepharoplasty History of cholecystectomy History of section Family History (Updated 04/09/24 @ 09:22 by Mariela Jones MD) Father CAD (coronary artery disease) Mother Essential hypertension Stroke, Onset Age: 78 Brother Healthy adult Family/Other FH: mental illness Social History Housing: House Alcohol intake: current Alcohol intake frequency: holidays/special occasions only Alcohol type: hard liquor Patient Tobacco Use Status: Former Tobacco user Tobacco use type: Cigarette Cigarettes Per Day: 10 e-Cigarette/Vaping Use: Currently Using Second Hand Smoke Exposure: No Advance Directives Date on File: 01/29/22 service: No Current occupational status: disabled Cognitive needs: No Hearing needs: No Vision needs: No Questionnaire PHQ-9 Over the last 2 weeks, how often have you been bothered by any of the following problems? 1. Little interest or pleasure in doing things: several days 2. Feeling down, depressed, or hopeless: several days 3. Trouble falling or staying asleep, or sleeping too much: not at all 4. Feeling tired or having little energy: several days 5. Poor appetite or overeating: several days 6. Feeling bad about yourself - or that you are a failure or have let yourself or your family down: not at all 7. Trouble concentrating on things, such as reading the newspaper or watching television: not at all 8. Moving or speaking so slowly that other people could have noticed. Or the opposite - being so fidgety or restless that you have been moving around a lot more than usual: not at all 9. Thoughts that you would be better off or of hurting yourself in some way: not at all Total score: 4 Depression Screening Interpretation: Positive Depression Screening Follow-up: Existing condition, In treatment and Follow-up Visit Requested Depression Screening Done: Yes 99247 - PHQ-9 Billing: Yes Source: Developed by Drs. Domingo Izquierdo, Venita Mayo, Jaspreet Spear and colleagues, with an educational stew from [employer]. Thrive Questionnaire Date Thrive assessed: 10/05/23 I am a: Patient What is your living situation today?: I have a steady place to live Within the past 12 months, did the food you bought not last and you didn't have the money to get more?: Never true Within the past 12 months, did you worry whether your food would run out before you got money to buy more?: Never true Do you have trouble paying for medicines?: No Do you have trouble getting transportation to medical appointments?: No Do you have trouble paying your heating and electricity bill?: No Do you have trouble taking care of your child, family member or friend?: No Do you have trouble with day-to-day activities such as bathing, preparing meals, shopping, managing finances, etc.?: No Are you currently unemployed and looking for a job?: No Are you interested in more education?: No Please select the resources that you would like help with: None Currently or been in a relationship where the following occur: No concerns reported THRIVE Score: 0 AUDIT C Alcohol Use Questionnaire (AUDIT-C) 1. How often do you have a drink containing alcohol?: Monthly or less 2. How many drinks containing alcohol do you have on a typical day when you are drinking?: 1 or 2 3. How often do you have six or more drinks on one occasion?: Never Total Score: 1 Score Reviewed/Action Taken: No CAMERON-7 AMB Questionnaire CAMERON-7 Date CAMERON - 7 assessed: 12/06/23 Feeling nervous, anxious, or on edge: 1 = Several days Not being able to stop or control worryin = Several days Worrying too much about different things: 0 = Not at all Trouble relaxin = Not at all Being so restless that it is hard to sit still: 0 = Not at all Becoming easily annoyed or irritable: 0 = Not at all Feeling afraid as if something awful might happen: 0 = Not at all Total CAMERON-7 score (0-4 normal; 5-9 mild; 10-14 moderate; 15-21 severe): 2 Source: Developed by Drs. Domingo Izquierdo, Venita Mayo, Jaspreet Spear and colleagues, with an educational stew from [employer]. CAMERON-7 Assessment Billing CAMERON-7 Assessment Tool: CAMERON-7 Assessment 12875 Review of Systems Const All systems reviewed & are unremarkable except as noted in HPI and below Card Denies chest pain at rest, Denies chest pain with activity, Denies edema, Denies irregular heart rhythm, Denies claudication, Denies dyspnea, Denies dyspnea on exertion, Denies orthopnea, Denies paroxysmal nocturnal dyspnea and Denies slow heart rate Resp Denies cough, Denies dyspnea and Denies dyspnea on exertion GI Denies abdominal pain, Denies change in bowel habits, Denies excessive flatus, Denies nausea and Denies vomiting Neuro Denies lack of coordination Aller/Immun Denies urticaria Physical exam (Primary Care) Vital Signs: Last Vital Signs Pulse 104 H 04/09/24 08:55 BP 110/72 04/09/24 08:55 Pulse Ox 95 04/09/24 08:55 Oxygen Delivery Method Room Air 04/09/24 08:55 BMI result Body Mass Index 43.5 BMI Assessment/Plan discussion: High BMI High, discussed plan: lifestyle, weight reduction, dietary and physical activity Tobacco/Smoking Status: Tobacco use Status Tobacco use date assessed 12/06/23 04/09/24 09:05 Patient Tobacco Use Status Former Tobacco user 04/09/24 09:05 Tobacco use type Cigarette 04/09/24 09:05 e-Cigarette/Vaping Use Currently Using 04/09/24 09:05 Are you ready to quit: Yes Tobacco cessation counseling provided: No PHQ-9: PHQ-9 Score PHQ-9: Total score 4 04/09/24 09:23 Depression Screening Interpretation: Positive Depression Screening Follow-up: Existing condition, In treatment and Follow-up Visit Requested Thrive Assessment: Date of Thrive Assessment Date Thrive assessed 10/05/23 04/09/24 09:05 Currently or been in a relationship where the following occur: No concerns r eported Const Orientation/consciousness: patient oriented x3 HENMT Head: Yes normal to inspection, Yes normocephalic and Yes atraumatic Ears: external ears normal Eyes General: appearance normal, both eyes and all related structures Eyelids: Yes eyelids normal Conjunctivae: conjunctivae normal Neck Neck: Yes normal visual inspection and Yes supple Resp Effort & Inspection: normal respiratory effort Auscultation: clear to auscultation bilaterally Cardio Jugular venous distension: no JVD Rate: regular rate Rhythm: regular rhythm Heart sounds: S1 normal heart sound present and S2 normal heart sound present GI Inspection: Yes normal to inspection Palpation (GI): Soft to palpation and nontender Auscultation: normal bowel sounds Skin General skin exam: no rashes or lesions noted Neuro General: patient oriented x3 and no focal motor deficits Extrem General: Yes full ROM Psych Appearance: grossly normal Assessment and Plan Assessment & Plan (1) Physical exam: Code(s): Z00.00 - Encounter for general adult medical examination without abnormal findings Plan: Repeat in a year. (2) Morbid obesity: Code(s): E66.01 - Morbid (severe) obesity due to excess calories Plan: Advised to do diet and exercise. Start Wegovy if insurance approves. BMI goal is less than 30. (3) Mild recurrent major depression: Code(s): F33.0 - Major depressive disorder, recurrent, mild Plan: Continue SSRIs. Orders: Orders XR DEXA axial skeleton Today N95.9 - Unspecified menopausal and perimenopausal disorder MM screening mammo BI Today Z12.31 - Encounter for screening mammogram for malignant neoplasm of breast Vitamin D 25-OH Total Today E55.9 - Vitamin D deficiency, unspecified, M85.80 - Other specified disorders of bone density and structure, unspecified site Lipid Panel Today E66.01 - Morbid (severe) obesity due to excess calories Comprehensive [place]. Panel Fast Today E66.01 - Morbid (severe) obesity due to excess calories Referrals Gastroenterology Referral Z12.11 - Encounter for screening for malignant ramila plasm of colon Medications: New semaglutide (weight loss) (Wegovy) administer weeks 1 through 4 of therapy 0.25 mg (0.5 mL) subcut QWEEK 2 mL 0RF 4 weeks E66.01 - Morbid (severe) obesity due to excess calories Coding Level of Care Code Est Pt Prev Care >65y(23292) Diagnoses Physical exam Z00.00 Morbid obesity E66.01 Mild recurrent major depression F33.0 Additional Codes CAMERON-7 Assessment Billing - CAMERON-7 Assessment Tool: CAMERON-7 Assessment 44276 ([id number]) Time Spent (min) 35
== END 2024-04-09 09:37 | disposition home or self-care (01) ==
PROVIDERS: PCP Internal Medicine; Visit Provider Internal Medicine
DX: Z00.00 Encounter for general adult medical examination without abnormal findings (principal); E66.01 Morbid (severe) obesity due to excess calories; Z68.41 Body mass index [BMI] 40.0-44.9, adult; F33.0 Major depressive disorder, recurrent, mild
CPT/HCPCS: 96127; 99397

== ENCOUNTER 2024-05-11 13:30 | Outpatient (REF) | payer MEDICARE, SELFPAY ==
--- NOTE | ~2024-05-11 | MM_ITS ---
EXAMINATION: MM SCREENING DIGITAL BREAST TOMOSYNTHESIS, BILATERAL CLINICAL INFORMATION: Screening. Asymptomatic. No prior family history, no prior surgeries as per technologist note. COMPARISON: Mammography: 02/25/2023, 02/23/2022, 04/24/2018, 06/13/2015. TECHNIQUE: Digital breast tomosynthesis is performed in both the craniocaudal and mediolateral oblique views along with computer-aided detection (CAD). Synthesized 2D images are generated from the tomosynthesis. FINDINGS: The breasts are heterogeneously dense, which may obscure small masses (ACR BI-RADS breast composition Category c). There are no suspicious masses, suspicious grouped calcifications, or areas of architectural distortion in either breast. The parenchymal pattern is stable from prior exams. There is no skin or axillary abnormality. MM/MM tomosynthesis screening BI IMPRESSION: No mammographic evidence of malignancy. ASSESSMENT: BI-RADS BI-RADS 1 - Negative RECOMMENDATION: Routine annual mammography screening. 1 year F/U This examination should not preclude the clinical evaluation of a suspicious palpable abnormality. This patient's information was entered into a reminder system with a target due date for their next mammogram. Electronically signed by: Ramon Marin MD 05/30/2024 09:47 AM EDT
--- NOTE | ~2024-05-11 | MM_ITS ---
EXAMINATION: BONE DENSITOMETRY CLINICAL INDICATION: Unspecified menopausal and perimenopausal disorder. COMPARISON: Baseline BD dated 02/17/2022. TECHNIQUE: Using a [employer] DXA System (software version: 13.1) manufactured by [employer], dual-energy x-ray absorptiometry was performed of the lumbar spine and left hip. The images are of good technical quality. Summary results are attached. FINDINGS: LEFT FEMUR, NECK: Current: BMD 0.758 g/cm2, Z-score -1.0, T-score -2.0, osteopenia. Baseline: BMD 0.769 g/cm2. LEFT FEMUR, TOTAL: Current: BMD 0.964 g/cm2, Z-score 0.4, T-score -0.3, normal, 1.2% increase from baseline (<5% change is not significant). Baseline: BMD 0.953 g/cm2. AP SPINE L1-L4: Current: BMD 1.053 g/cm2, Z-score -0.5, T-score -1.1, osteopenia, 3.4% increase from baseline (<5% change is not significant). Baseline: BMD 1.018 g/cm2. IDENTIFIED RISK FACTORS: Early menopause, secondary osteoporosis, height loss, current smoker. HISTORY OF FRACTURE: None listed. MEDICATIONS: Calcium supplements or multivitamin, vitamin D. MM/XR DEXA axial skeleton IMPRESSION: 1. DIAGNOSIS: Osteopenia based on the lowest T-score value of -2.0 in the femoral neck applying World Health Organization criteria. 2. 10-YEAR FRACTURE RISK PREDICTION, FRAX: Major osteoporotic fracture (clinical spine, forearm, hip or shoulder) 11.4%. Hip fracture 3.6%. 3. Treatment Recommendations: NOF guidelines recommend consideration for treatment in postmenopausal women and men age 50 and older presenting with the following: -A hip or vertebral (clinical or morphometric) fracture. -T-score less than or equal to -2.5 at the femoral neck or spine after appropriate evaluation to exclude secondary causes. -Low bone mass at the hip or spine and a 10-year fracture probability by FRAX of greater than or equal to 3% for hip fracture or greater than or equal to 20% for major osteoporotic fracture based on the [place] adapted WHO algorithm. 4. Other Recommendations: All treatment decisions require clinical judgment and consideration of individual patient factors, including patient preferences, comorbidities, previous drug use, risk factors not captured in the FRAX model (e.g. frailty, falls, vitamin D deficiency, increased bone turnover, interval significant decline in bone density) and possible under or overestimation of fracture risk by FRAX. Additional medical evaluation for secondary cause of low bone mineral density may be appropriate. FUTURE SCAN RECOMMENDATION: People with diagnosed cases of osteoporosis or at high risk for fracture should have regular bone mineral density tests. For patients eligible for Medicare, routine testing is allowed once every 2 years. The testing frequency can be increased to one year for patients who have rapidly progressing disease, those who are receiving or discontinuing medical therapy to restore bone mass, or have additional risk factors.
== END 2024-05-11 13:31 | disposition home or self-care (01) ==
LOC: HO.MAMMO 13:30
PROVIDERS: PCP Internal Medicine; Visit Provider Internal Medicine
DX: Z12.31 Encounter for screening mammogram for malignant neoplasm of breast (principal); Z13.820 Encounter for screening for osteoporosis; Z78.0 Asymptomatic menopausal state
CPT/HCPCS: 77063; 77067; 77080

== ENCOUNTER → 2024-05-11 13:45 | Outpatient (BNV) | payer MEDICARE, SELFPAY | PROVIDERS: PCP Internal Medicine; Visit Provider Radiology Diagnostic Radiology | DX: Z12.31 Encounter for screening mammogram for malignant neoplasm of breast (principal) | CPT/HCPCS: 77063; 77067 ==

== ENCOUNTER 2024-06-05 09:09 | Outpatient (REF) | payer MEDICARE, SELFPAY ==
[2024-06-05 10:44] LABS: Alanine Aminotransferase 12 U/L (0-31); Albumin Level 4.3 g/dL (3.5-5.0); Alkaline Phosphatase 104 U/L (39-117); Anion Gap 13 (12-20); Aspartate Amino Transferase 17 U/L (5-31); Bilirubin Total 0.6 mg/dL (0.0-1.0); Blood Urea Nitrogen 20 mg/dL (9-16); Carbon Dioxide 28 mmol/L (22-29); Chloride 103 mmol/L (96-108); Cholesterol 187 mg/dL (<200); Estimated Glomerular Filt Rate > 60; Glucose Fasting 104 mg/dL (60-99); HDL Cholesterol 53 mg/dL (>40); LDL Cholesterol Calculated 104 mg/dL (<100); Potassium 4.2 mmol/L (3.3-5.1); Sodium 140 mmol/L (135-145); Total Protein 7.5 g/dL (6.5-8.0); Triglycerides 154 mg/dL (<150); Vitamin D 25-OH Total 45.5 ng/mL (>30)
== END 2024-06-05 09:10 | disposition home or self-care (01) ==
LOC: HO.LAB 09:09
PROVIDERS: PCP Internal Medicine; Visit Provider Internal Medicine
DX: E66.01 Morbid (severe) obesity due to excess calories (principal); E55.9 Vitamin D deficiency, unspecified; M85.80 Other specified disorders of bone density and structure, unspecified site
CPT/HCPCS: 36415; 80053; 80061; 82306

== ENCOUNTER 2024-10-10 12:55 | Outpatient (AMB) | payer MEDICARE, SELFPAY ==
--- NOTE | 2024-10-10 13:03 | A.OFFPC_ITS ---
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 Accompanied by: Self / Same As Patient Allergies No Known Drug Allergies Allergy (Unknown, Verified 10/10/24 13:15) U Medication List - Last Reconciled 10/10/24 by Mariela Jones MD acetaminophen (Tylenol Extra Strength) 500 mg PO Q6H PRN ascorbic acid (vitamin C) ER 1,000 mg PO Q12H aspirin (Adult Low Dose Aspirin) 81 mg PO DAILY calcium carbonate 600 mg PO BID 90 days cholecalciferol (vitamin D3) 50 mcg PO DAILY clonazepam 1 mg PO BEDTIME PRN 30 days docusate sodium (Colace) 100 mg PO DAILY fluoxetine 20 mg PO DAILY 90 days gabapentin 800 mg PO TID 30 days ibuprofen 200 mg PO Q6H PRN meclizine 25 mg PO DAILY PRN 3 days melatonin 10 mg PO BEDTIME PRN omeprazole 20 mg PO DAILY sennosides (Natural Senna Laxative) 17.2 mg PO DAILY Tobacco use date assessed: 10/10/24 Fall risk assessment: No Falls in past year Last assessed Fall Risk: 10/10/24 Dental Screening Dental Screen Date: 10/10/24 Did you have a dental visit in the last 12 months?: Yes Did you have a dental problem in the last 6 months where you did not have access to dental care?: No Was dental information given to patient?: Patient has dentist HPI HPI Comments History of Present Illness Details This is a 74-year-old female with mild recurrent major depression, anxiety, GERD, constipation and morbid obesity that comes today for follow-up on her conditions. Depression has been stable with SSRIs. Anxiety well controlled with benzodiazepines and she is aware can cause addiction, sedation and dementia. GERD stable with PPIs. Constipation well controlled with medications. She has gained 14 lb due to increase in appetite and has a BMI of 46.1. Was advised to do diet and exercise. Wegovy was not approved by insurance and I will send Zepbound instead. She is a smoker and was advised to quit. [facility] Medical History (Updated 10/10/24 @ 13:30 by Mariela Jones MD) Postmenopausal Insomnia Lumbar degenerative disc disease Mild recurrent major depression Constipation by delayed colonic transit Hypovitaminosis D Encounter for annual wellness exam in Medicare patient CAMERON (generalized anxiety disorder) Chronic GERD Morbid obesity Surgical History History of cataract surgery Abnormal colonoscopy History of knee replacement procedure of right knee History of left knee replacement History of laryngoscopy History of cyst of breast History of blepharoplasty History of cholecystectomy History of section Family History Father CAD (coronary artery disease) Mother Essential hypertension Stroke, Onset Age: 78 Brother Healthy adult Family/Other FH: mental illness Social History Housing: House Alcohol intake: current Alcohol intake frequency: holidays/special occasions only Alcohol type: hard liquor Patient Tobacco Use Status: Current everyday Tobacco user Tobacco use type: Cigarette Cigarettes Per Day: 5 e-Cigarette/Vaping Use: Currently Using Second Hand Smoke Exposure: No Advance Directives Date on File: 01/29/22 service: No Current occupational status: disabled Cognitive needs: No Hearing needs: No Vision needs: No Questionnaire PHQ-9 Over the last 2 weeks, how often have you been bothered by any of the following problems? 1. Little interest or pleasure in doing things: several days 2. Feeling down, depressed, or hopeless: several days 3. Trouble falling or staying asleep, or sleeping too much: not at all 4. Feeling tired or having little energy: several days 5. Poor appetite or overeating: several days 6. Feeling bad about yourself - or that you are a failure or have let yourself or your family down: not at all 7. Trouble concentrating on things, such as reading the newspaper or watching television: not at all 8. Moving or speaking so slowly that other people could have noticed. Or the opposite - being so fidgety or restless that you have been moving around a lot more than usual: not at all 9. Thoughts that you would be better off or of hurting yourself in some way: not at all Total score: 4 Depression Screening Interpretation: Positive Depression Screening Follow-up: Existing condition, In treatment and Follow-up Visit Requested Depression Screening Done: Yes 29324 - PHQ-9 Billing: Yes Source: Developed by Drs. Domingo Izquierdo, Venita Mayo, Jaspreet Spear and colleagues, with an educational stew from [employer]. Thrive Questionnaire Date Thrive assessed: 10/10/24 I am a: Patient What is your living situation today?: I have a steady place to live Within the past 12 months, did the food you bought not last and you didn't have the money to get more?: Never true Within the past 12 months, did you worry whether your food would run out before you got money to buy more?: Never true Do you have trouble paying for medicines?: No Do you have trouble getting transportation to medical appointments?: No Do you have trouble paying your heating and electricity bill?: No Do you have trouble taking care of your child, family member or friend?: No Do you have trouble with day-to-day activities such as bathing, preparing meals, shopping, managing finances, etc.?: No Are you currently unemployed and looking for a job?: No Are you interested in more education?: No Please select the resources that you would like help with: None Currently or been in a relationship where the following occur: No concerns reported THRIVE Score: 0 AUDIT C Alcohol Use Questionnaire (AUDIT-C) 1. How often do you have a drink containing alcohol?: Never Total Score: 0 CAMERON-7 AMB Questionnaire CAMERON-7 Date CAMERON - 7 assessed: 10/10/24 Feeling nervous, anxious, or on edge: 1 = Several days Not being able to stop or control worryin = Not at all Worrying too much about different things: 1 = Several days Trouble relaxin = Not at all Being so restless that it is hard to sit still: 0 = Not at all Becoming easily annoyed or irritable: 0 = Not at all Feeling afraid as if something awful might happen: 0 = Not at all Total CAMERON-7 score (0-4 normal; 5-9 mild; 10-14 moderate; 15-21 severe): 2 Source: Developed by Drs. Domingo Izquierdo, Jaspreet Murray and colleagues, with an educational stew from [employer]. CAMERON-7 Assessment Billing CAMERON-7 Assessment Tool: CAMERON-7 Assessment 10358 Review of Systems Const All systems reviewed & are unremarkable except as noted in HPI and below Card Denies chest pain at rest, Denies chest pain with activity, Denies edema, Denies irregular heart rhythm, Denies claudication, Denies dyspnea, Denies dyspnea on exertion, Denies orthopnea, Denies paroxysmal nocturnal dyspnea and Denies slow heart rate Resp Denies cough, Denies dyspnea and Denies dyspnea on exertion Physical exam (Primary Care) Vital Signs: Last Vital Signs BP 132/86 10/10/24 13:04 BMI result Body Mass Index 46.1 BMI Assessment/Plan discussion: High BMI High, discussed plan: lifestyle, weight reduction, dietary and physical activity Tobacco/Smoking Status: Tobacco use Status Tobacco use date assessed 10/10/24 10/10/24 13:13 Patient Tobacco Use Status Current everyday Tobacco 10/10/24 13:13 Tobacco use type Cigarette 10/10/24 13:13 e-Cigarette/Vaping Use Currently Using 10/10/24 13:13 Are you ready to quit: No Tobacco cessation counseling provided: Yes Items discussed: Nicotine replacement and QuitWorks Relapse Prevention: discussed the importance of a supportive environment, discussed extending NRT, discussed negative mood or depression after quitting, weight gain after smoking is common and discussed dietary, exercise and/or lifestyle changes Number of minutes spent counselin CPT code: 32091 - 4-10 Minutes PHQ-9: PHQ-9 Score PHQ-9: Total score 4 10/10/24 13:13 Depression Screening Interpretation: Positive Depression Screening Follow-up: Existing condition, In treatment and Follow-up Visit Requested Thrive Assessment: Date of Thrive Assessment Date Thrive assessed 10/10/24 10/10/24 13:13 Currently or been in a relationship where the following occur: No concerns reported Resp Effort & Inspection: normal respiratory effort Auscultation: clear to auscultation bilaterally Cardio Jugular venous distension: no JVD Rate: regular rate Rhythm: regular rhythm Heart sounds: S1 normal heart sound present and S2 normal heart sound present Extrem General: Yes full ROM Psych Appearance: grossly normal Coding Level of Care Code Est Pt Level 4 (84226) Complex EM visit Add On G2211 Diagnoses Morbid obesity E66.01 Mild recurrent major depression F33.0 Constipation by delayed colonic transit K59.01 CAMERON (generalized anxiety disorder) F41.1 Chronic GERD K21.9 Additional Codes CAMERON-7 Assessment Billing - CAMERON-7 Assessment Tool: CAMERON-7 Assessment 85299 ([id number]) PHQ-9 - 85544 - PHQ-9 Billing: Yes ([id number]) Vital Signs *Quality* - CPT code: 10932 - 4-10 Minutes ([id number]) Time Spent (min) 22 Assessment & Plan Assessment & Plan (1) Morbid obesity: Code(s): E66.01 - Morbid (severe) obesity due to excess calories Category: Medical (2) Mild recurrent major depression: Code(s): F33.0 - Major depressive disorder, recurrent, mild Category: Medical (3) Constipation by delayed colonic transit: Code(s): K59.01 - Slow transit constipation Category: Medical (4) CAMERON (generalized anxiety disorder): Code(s): F41.1 - Generalized anxiety disorder Category: Medical (5) Chronic GERD: Code(s): K21.9 - Gastro-esophageal reflux disease without esophagitis Category: Medical Plan For depression continue fluoxetine. For anxiety continue benzodiazepines. She is morbidly obese with a BMI of 46.1 and I sent Zepbound pending to be approved by insurance. Continue PPIs as needed for GERD. Start high-fiber diet for constipation and continue medications. Orders: Orders Lipid Panel 6 Months E78.5 - Hyperlipidemia, unspecified Vitamin D 25-OH Total 6 Months E55.9 - Vitamin D deficiency, unspecified Comprehensive [place]. Panel Fast 6 Months E66.01 - Morbid (severe) obesity due to excess calories Medications: New tirzepatide (weight loss) (Zepbound) for 4 weeks 2.5 mg (0.5 mL) subcut QWEEK 4 weeks 2 mL 0RF E66.01 - Morbid (severe) obesity due to excess calories
[2024-10-10 13:04] VITALS: BP 132/86; BMI 46.1
== END 2024-10-10 13:33 | disposition home or self-care (01) ==
PROVIDERS: PCP Internal Medicine; Visit Provider Internal Medicine
DX: K59.01 Slow transit constipation (principal); E66.01 Morbid (severe) obesity due to excess calories; F33.0 Major depressive disorder, recurrent, mild; Z68.42 Body mass index [BMI] 45.0-49.9, adult; K21.9 Gastro-esophageal reflux disease without esophagitis; F41.1 Generalized anxiety disorder

== ENCOUNTER → 2024-10-10 12:55 | Outpatient (BNVA) | payer MEDICARE, SELFPAY | PROVIDERS: PCP Internal Medicine; Visit Provider Internal Medicine | DX: F41.1 Generalized anxiety disorder (principal); K21.9 Gastro-esophageal reflux disease without esophagitis; E66.01 Morbid (severe) obesity due to excess calories; F17.210 Nicotine dependence, cigarettes, uncomplicated; F33.0 Major depressive disorder, recurrent, mild; K59.01 Slow transit constipation; E55.9 Vitamin D deficiency, unspecified; Z71.6 Tobacco abuse counseling; Z79.899 Other long term (current) drug therapy; Z68.42 Body mass index [BMI] 45.0-49.9, adult | CPT/HCPCS: 96127; 99212 ==

== ENCOUNTER 2025-02-04 08:35 | Outpatient (REF) | payer MEDICARE, SELFPAY ==
[2025-02-04 10:01] LABS: Alanine Aminotransferase 18 U/L (0-31); Albumin Level 4.2 g/dL (3.5-5.0); Alkaline Phosphatase 114 U/L (39-117); Anion Gap 13 (12-20); Aspartate Amino Transferase 21 U/L (5-31); Bilirubin Total 0.5 mg/dL (0.0-1.0); Blood Urea Nitrogen 22 mg/dL (9-16); Calcium 9.4 mg/dL (8.4-10.2); Carbon Dioxide 29 mmol/L (22-29); Chloride 104 mmol/L (96-108); Cholesterol 180 mg/dL (<200); Estimated Glomerular Filt Rate > 60; Glucose Fasting 107 mg/dL (60-99); HDL Cholesterol 55 mg/dL (>40); LDL Cholesterol Calculated 105 mg/dL (<100); Potassium 4.7 mmol/L (3.3-5.1); Sodium 141 mmol/L (135-145); Total Protein 7.4 g/dL (6.5-8.0); Triglycerides 102 mg/dL (<150)
== END 2025-02-04 08:36 | disposition home or self-care (01) ==
LOC: HO.LAB 08:35
PROVIDERS: PCP Internal Medicine; Visit Provider Internal Medicine
DX: E66.01 Morbid (severe) obesity due to excess calories (principal); E55.9 Vitamin D deficiency, unspecified; E78.5 Hyperlipidemia, unspecified
CPT/HCPCS: 36415; 80053; 80061; 82306

== ENCOUNTER 2025-04-11 09:22 | Outpatient (AMB) | payer MEDICARE, SELFPAY ==
--- NOTE | 2025-04-11 09:25 | MHC.PC.OV ---
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 Accompanied by: Self / Same As Patient Allergies No Known Drug Allergies Allergy (Unknown, Verified 04/11/25 09:33) U Medication List - Last Reconciled 04/11/25 by Mariela Jones MD acetaminophen (Tylenol Extra Strength) 500 mg PO Q6H PRN ascorbic acid (vitamin C) ER 1,000 mg PO Q12H aspirin (Adult Low Dose Aspirin) 81 mg PO DAILY calcium carbonate 600 mg PO BID 90 days cholecalciferol (vitamin D3) 50 mcg PO DAILY clonazepam 1 mg PO BEDTIME PRN 30 days docusate sodium (Colace) 100 mg PO DAILY fluoxetine 20 mg PO DAILY 90 days gabapentin 800 mg PO TID 30 days ibuprofen 200 mg PO Q6H PRN meclizine 25 mg PO DAILY PRN 3 days melatonin 10 mg PO BEDTIME PRN omeprazole 20 mg PO DAILY sennosides (Natural Senna Laxative) 17.2 mg PO DAILY Tobacco use date assessed: 04/11/25 Fall risk assessment: No Falls in past year Last assessed Fall Risk: 04/11/25 Dental Screening Dental Screen Date: 10/10/24 HPI HPI Comments History of Present Illness Details The patient is a 74-year-old female presenting with a physical examination and review of preventative care measures. The patient has a history of osteopenia, diagnosed in 2023, with a recommendation for calcium and vitamin D supplementation. She is scheduled for a follow-up DEXA scan in 2025. The patient is morbidly obese and has been advised to engage in diet and exercise for weight management. She has attempted weight loss through a self-directed diet, resulting in a 7-pound reduction since March 22. The patient experiences depression, with a PHQ-9 score of 6, and is currently on fluoxetine 20 mg daily. She also reports anxiety, managed with clonazepam as needed, despite awareness of potential side effects such as addiction and sedation. The patient has a history of prediabetes, with a fasting blood glucose level of 107 mg/dL. She is advised to monitor her blood glucose levels regularly. The patient reports chronic gastroesophageal reflux disease, managed with omeprazole, and insomnia, for which she takes melatonin. The patient has a history of cataracts, bilateral knee replacements, laryngoscopy with polyp removal, blepharoplasty, gallbladder removal, and sections. Preventative care measures include up-to-date Tdap and pneumonia vaccinations, a mammogram performed last year with a follow-up scheduled for May, and a bone density scan planned for 2025. The patient has not undergone a colonoscopy since 2019 but is considering a Cologuard test for colon cancer screening. [facility] Medical History Postmenopausal Insomnia Lumbar degenerative disc disease Mild recurrent major depression Constipation by delayed colonic transit Hypovitaminosis D Encounter for annual wellness exam in Medicare patient CAMERON (generalized anxiety disorder) Chronic GERD Morbid obesity Surgical History History of cataract surgery Abnormal colonoscopy History of knee replacement procedure of right knee History of left knee replacement History of laryngoscopy History of cyst of breast History of blepharoplasty History of cholecystectomy History of section Family History (Updated 04/11/25 @ 09:48 by Mariela Jones MD) Father CAD (coronary artery disease) Mother Essential hypertension Stroke, Onset Age: 78 Brother No problems noted. Family/Other FH: mental illness Social History Housing: House Alcohol intake: current Alcohol intake frequency: holidays/special occasions only Alcohol type: hard liquor Patient Tobacco Use Status: Current everyday Tobacco user Tobacco use type: Cigarette Cigarettes Per Day: 5 e-Cigarette/Vaping Use: Currently Using Second Hand Smoke Exposure: No Advance Directives Date on File: 01/29/22 service: No Current occupational status: disabled Cognitive needs: No Hearing needs: No Vision needs: No Questionnaire PHQ-9 Over the last 2 weeks, how often have you been bothered by any of the following problems? 1. Little interest or pleasure in doing things: several days 2. Feeling down, depressed, or hopeless: several days 3. Trouble falling or staying asleep, or sleeping too much: not at all 4. Feeling tired or having little energy: several days 5. Poor appetite or overeating: several days 6. Feeling bad about yourself - or that you are a failure or have let yourself or your family down: several days 7. Trouble concentrating on things, such as reading the newspaper or watching television: several days 8. Moving or speaking so slowly that other people could have noticed. Or the opposite - being so fidgety or restless that you have been moving around a lot more than usual: not at all 9. Thoughts that you would be better off or of hurting yourself in some way: not at all Total score: 6 Depression Screening Interpretation: Positive Depression Screening Follow-up: Existing condition and Follow-up Visit Requested Depression Screening Done: Yes 37126 - PHQ-9 Billing: Yes Source: Developed by Drs. Domingo Izquierdo, Venita Mayo, Jaspreet Spera and colleagues, with an educational stew from [employer]. Thrive Questionnaire Date Thrive assessed: 04/04/25 I am a: Patient What is your living situation today?: I have a steady place to live Within the past 12 months, did the food you bought not last and you didn't have the money to get more?: Never true Within the past 12 months, did you worry whether your food would run out before you got money to buy more?: Never true Do you have trouble paying for medicines?: No Do you have trouble getting transportation to medical appointments?: No Do you have trouble paying your heating and electricity bill?: No Do you have trouble taking care of your child, family member or friend?: No Do you have trouble with day-to-day activities such as bathing, preparing meals, shopping, managing finances, etc.?: No Are you currently unemployed and looking for a job?: No Are you interested in more education?: No Please select the resources that you would like help with: None Currently or been in a relationship where the following occur: No concerns reported THRIVE Score: 0 AUDIT C Alcohol Use Questionnaire (AUDIT-C) 1. How often do you have a drink containing alcohol?: Monthly or less 2. How many drinks containing alcohol do you have on a typical day when you are drinking?: 1 or 2 3. How often do you have six or more drinks on one occasion?: Never Total Score: 1 Score Reviewed/Action Taken: No CAMERON-7 AMB Questionnaire CAMERON-7 Date CAMERON - 7 assessed: 10/10/24 Feeling nervous, anxious, or on edge: 1 = Several days Not being able to stop or control worryin = Several days Worrying too much about different things: 1 = Several days Trouble relaxin = Several days Being so restless that it is hard to sit still: 1 = Several days Becoming easily annoyed or irritable: 1 = Several days Feeling afraid as if something awful might happen: 1 = Several days Total CAMERON-7 score (0-4 normal; 5-9 mild; 10-14 moderate; 15-21 severe): 7 Source: Developed by Drs. Domingo Izquierdo, Venita Mayo, Jaspreet Spear and colleagues, with an educational stew from [employer]. CAMERON-7 Assessment Billing CAMERON-7 Assessment Tool: CAMERON-7 Assessment 06917 Review of Systems Const All systems reviewed & are unremarkable except as noted in HPI and below Card Denies chest pain at rest, Denies chest pain with activity, Denies edema, Denies irregular heart rhythm, Denies claudication, Denies dyspnea, Denies dyspnea on exertion, Denies orthopnea, Denies paroxysmal nocturnal dyspnea and Denies slow heart rate Resp Denies cough, Denies dyspnea and Denies dyspnea on exertion GI Denies abdominal pain, Denies change in bowel habits, Denies excessive flatus, Denies nausea and Denies vomiting Denies urinary incontinence, Denies urinary hesitancy and Denies urinary urgency Neuro Denies behavioral changes and Denies lack of coordination Psych Denies behavioral changes Physical exam (Primary Care) Vital Signs: Last Vital Signs BP 110/80 04/11/25 09:26 BMI result Body Mass Index 45.2 BMI Assessment/Plan discussion: High BMI High, discussed plan: lifestyle, weight reduction, dietary and physical activity Tobacco/Smoking Status: Tobacco use Status Tobacco use date assessed 04/11/25 04/11/25 09:32 Patient Tobacco Use Status Current everyday Tobacco 04/11/25 09:32 Tobacco use type Cigarette 04/11/25 09:32 e-Cigarette/Vaping Use Currently Using 04/11/25 09:32 PHQ-9: PHQ-9 Score PHQ-9: Total score 6 04/11/25 09:37 Depression Screening Interpretation: Positive Depression Screening Follow-up: Existing condition and Follow-up Visit Requested Thrive Assessment: Date of Thrive Assessment Date Thrive assessed 04/04/25 04/11/25 09:32 Currently or been in a relationship where the following occur: No concerns reported HENMT Head: Yes normal to inspection, Yes normocephalic and Yes atraumatic Ears: external ears normal Eyes General: appearance normal, both eyes and all related structures Eyelids: Yes eyelids normal Conjunctivae: conjunctivae normal Neck Neck: Yes normal visual inspection and Yes supple Resp Effort & Inspection: normal respiratory effort Auscultation: clear to auscultation bilaterally Cardio Jugular venous distension: no JVD Rate: regular rate Rhythm: regular rhythm Heart sounds: S1 normal heart sound present and S2 normal heart sound present GI Inspection: Yes normal to inspection Palpation (GI): Soft to palpation and nontender Auscultation: normal bowel sounds Skin General skin exam: no rashes or lesions noted Neuro General: no focal motor deficits Extrem General: Yes full ROM Psych Appearance: grossly normal Coding Level of Care Code Est Pt Prev Care >65y(50153) Diagnoses Physical exam Z00.00 Mild recurrent major depression F33.0 Morbid obesity E66.01 Additional Codes CAMERON-7 Assessment Billing - CAMERON-7 Assessment Tool: CAMERON-7 Assessment 48758 ([id number]) PHQ-9 - 50212 - PHQ-9 Billing: Yes ([id number]) Time Spent (min) 31 Assessment & Plan Assessment & Plan (1) Physical exam: Code(s): Z00.00 - Encounter for general adult medical examination without abnormal findings Category: Medical (2) Mild recurrent major depression: Code(s): F33.0 - Major depressive disorder, recurrent, mild Category: Medical (3) Morbid obesity: Code(s): E66.01 - Morbid (severe) obesity due to excess calories Category: Medical Plan The patient will continue with calcium and vitamin D supplementation for osteopenia, with a follow-up DEXA scan scheduled for 2025. For morbid obesity, the patient is encouraged to maintain her current diet and exercise regimen, which has resulted in a 7-pound weight loss. Depression management will continue with fluoxetine 20 mg daily, and anxiety will be managed with clonazepam as needed, with caution regarding potential side effects. The patient is advised to monitor her blood glucose levels regularly due to prediabetes. Preventative care includes up-to-date vaccinations, a mammogram scheduled for May, and consideration of a Cologuard test for colon cancer screening. Patient was informed and verbally consented to the use of an ambient scribe for clinic note documentation during this visit. Orders: Orders Comprehensive [place]. Panel Fast 6 Months R73.02 - Impaired glucose tolerance (oral) Referrals Cologuard Test Z12.11 - Encounter for screening for malignant neoplasm of colon, Z12.12 - Encounter for screening for malignant neoplasm of rectum
[2025-04-11 09:26] VITALS: BP 110/80; BMI 45.2
== END 2025-04-11 10:04 | disposition home or self-care (01) ==
LOC: HO.HMCH 09:23
PROVIDERS: PCP Internal Medicine; Visit Provider Internal Medicine
DX: Z00.00 Encounter for general adult medical examination without abnormal findings (principal); F33.0 Major depressive disorder, recurrent, mild; E66.01 Morbid (severe) obesity due to excess calories; Z68.42 Body mass index [BMI] 45.0-49.9, adult

== ENCOUNTER → 2025-04-11 09:22 | Outpatient (BNVA) | payer MEDICARE, SELFPAY | PROVIDERS: PCP Internal Medicine; Visit Provider Internal Medicine | DX: Z00.00 Encounter for general adult medical examination without abnormal findings (principal); E66.01 Morbid (severe) obesity due to excess calories; R73.03 Prediabetes; K21.9 Gastro-esophageal reflux disease without esophagitis; F33.0 Major depressive disorder, recurrent, mild; R73.02 Impaired glucose tolerance (oral); Z96.653 Presence of artificial knee joint, bilateral; Z68.42 Body mass index [BMI] 45.0-49.9, adult | CPT/HCPCS: 96127; 99397 ==